=== PATIENT | male | born 1960 | race Caucasian/White ===

== ENCOUNTER 2018-04-22 21:06 | Inpatient (IN) ==
--- NOTE | 2018-04-22 21:11 | Emergency Department Note ---
Disposition Clinical Impression: Chest pain, rule out acute myocardial infarction Disposition: Admitted As Inpatient Condition: Fair Chest Pain HPI - General Chief Complaint: ED Chest Pain Stated Complaint: chest pain Time Seen by Provider: 04/22/18 21:09 Vital Signs Reviewed: Yes Nursing Notes Reviewed: Yes - History of Present Illness HPI Narrative: 57-year-old male presents emergency Department with sudden abrupt onset of retrosternal chest pain that started at 18:30 this evening. Patient has extensive history of coronary artery disease. He has 5 stents placed. Patient reports that he had episode of diaphoresis and nausea vomiting with it. Patient denies any radiation anywhere. Severity scale (1-10): 5 - Related Data Home Medications Medication Instructions Recorded Confirmed Atorvastatin [Lipitor] 40 mg PO HS 04/22/18 04/22/18 Clopidogrel [Plavix] 75 mg PO DAILY 04/22/18 04/22/18 Hydrochlorothiazide [Microzide] 12.5 mg PO DAILY 04/22/18 04/22/18 Isosorbide MONOnitrate [Isosorbide 120 mg PO DAILY 04/22/18 04/22/18 Mononitrate ER] Metoprolol [Lopressor] 25 mg PO BID 04/22/18 04/22/18 dilTIAZem HCl [Diltiazem 24Hr Cd] 120 mg PO DAILY 04/22/18 04/22/18 Allergies Allergy/AdvReac Type Severity Reaction Status Date / Time No Known Allergies Allergy Verified 04/22/18 21:47 All systems ED: reviewed and negative except as stated. Review of Systems: As Per HPI Constitutional: Denies: fever Cardiovascular: Reports: chest pain. Denies: palpitations Respiratory: Denies: cough, dyspnea Gastrointestinal: Reports: nausea, vomiting. Denies: abdominal pain Genitourinary: Denies: urgency, dysuria, frequency Musculoskeletal: Denies: back pain Integumentary: Denies: rash Neurological: Denies: weakness Physical Exam - General Limitations: no limitations General appearance: other (Patient appears uncomfortable) - Head Head exam: atraumatic - Eye Eye exam: Present: EOMI. Absent: scleral icterus - ENT ENT exam: normal oropharynx - Neck Neck exam: Present: trachea midline - Chest Chest inspection: Present: symmetric chest wall rise - Respiratory Respiratory exam: Present: normal lung sounds bilaterally. Absent: respiratory distress, accessory muscle use - Cardiovascular Cardiovascular exam: Present: regular rate, normal rhythm - Abdominal Exam Abdominal exam: Present: soft, Non-Tender. Absent: distention, guarding, rebound - Extremities Exam Extremities exam: Present: normal capillary refill - Back Exam Back exam: Present: full ROM - Neurological Exam Neurological exam: Present: alert, oriented X3 - Psychiatric Psychiatric exam: Present: anxious - Skin Skin exam: Present: warm, dry, intact, normal color. Absent: rash Course Vital Signs Temperature 97.8 F 04/22/18 21:06 Pulse Rate 88 04/22/18 21:06 Respiratory Rate 20 04/22/18 21:06 Blood Pressure 149/100 04/22/18 21:06 O2 Sat by Pulse Oximetry 98 04/22/18 21:06 Temperature 97.8 F 04/22/18 21:13 Pulse Rate 78 04/22/18 22:38 Respiratory Rate 20 04/22/18 22:38 Blood Pressure 129/84 04/22/18 22:38 O2 Sat by Pulse Oximetry 95 04/22/18 22:38 Oxygen Delivery Oxygen Delivery Room Air Chest Pain - [facility] Narrative Medical decision making narrative: 57-year-old male presents emergency department with concern for chest pain. Patient has a highly suspicious history of present illness. Heart score 5. Patient initially had episodes of nausea and vomiting with his chest pain. Initial EKG did not show any ischemic ST changes. 15 minutes after the first EKG, patient started having another episode of nausea vomiting with chest pain. Repeat EKG did not reveal any ischemic ST changes. Troponin was negative. A leukocytosis. Hemoglobin was normal. Patient's chest pain and nausea vomiting resolves after administration of nitroglycerin sublingually as well as Zofran for his nausea and vomiting. Patient also received aspirin here. Chest x-ray as read by me does not reveal any cardiopulmonary abnormality. Chest x-ray pending at time of admission. Spoke with the hospitalist agreed to accept patient for admission. After admission, patient was reporting mild increase of his chest pain to 4 out of 10. We administered nitroglycerin in form of paste. We are also running a liter of normal saline at this time as blood pressures are now normalized. Do not suspect aortic dissection at this time. Radial Pulses were equal bilaterally and there was no widening of the mediastinum on chest x-ray along with normal blood pressure. Patient hemodynamically stable at this time. Family and patient agree with plan for admission. Vital Signs Temperature 97.8 F 04/22/18 21:06 Pulse Rate 88 04/22/18 21:06 Respiratory Rate 20 04/22/18 21:06 Blood Pressure 149/100 04/22/18 21:06 O2 Sat by Pulse Oximetry 98 04/22/18 21:06 Temperature 97.8 F 04/22/18 21:13 Pulse Rate 78 04/22/18 22:38 Respiratory Rate 20 04/22/18 22:38 Blood Pressure 129/84 04/22/18 22:38 O2 Sat by Pulse Oximetry 95 04/22/18 22:38 Oxygen Delivery Oxygen Delivery Room Air - Lab Data Result diagrams: 04/22/18 21:20 04/22/18 21:20 Lab Results 04/22/18 04/22/18 04/22/18 Range/Units 21:10 21:20 21:20 WBC 9.6 (4.3-11.1) K/mcL RBC 5.17 (4.19-5.50) M/mcL Hgb 15.9 (12.9-16.9) g/dL Hct 45.3 (37.5-50.1) % MCV 87.6 (83.0-100.0) fL MCH 30.8 (28.0-33.3) pg MCHC 35.1 (31.6-35.5) g/dL RDW 13.6 (11.5-14.5) % Plt Count 200 (140-400) K/mcL MPV 9.9 (9.4-12.4) fL Immature Gran % 0.3 (0-4) % Seg Neutrophils % 84.0 % Lymphocytes % 10.4 % Monocytes % 4.2 % Eosinophils % 0.9 % Basophils % 0.2 % Neutrophils # 8.1 (1.6-8.9) K/mcL Lymphocytes # 1.0 (0.6-4.6) K/mcL Monocytes # 0.4 (0.0-1.3) K/mcL Eosinophils # 0.1 (0.0-0.6) K/mcL Basophils # 0.0 (0.0-0.2) K/mcL PT 11.7 (9.4-12.1) Seconds INR 1.0 APTT 31.7 (26.0-36.0) Seconds Sodium 141 (136-145) mEq/L Potassium 3.7 (3.5-5.1) mEq/L Chloride 107 (98-107) mEq/L Carbon Dioxide 25 (23-29) mEq/L BUN 22 H (6-20) mg/dL Creatinine 1.27 (0.70-1.30) mg/dL Est GFR ( Amer) > 60 (> 60) Est GFR (Non-Af Amer) 59 L (> 60) BUN/Creatinine Ratio 17 (6-26) Glucose 126 H (70-105) mg/dL Calculated Osmolality 297 (280-300) Calcium 9.6 (8.6-10.3) mg/dL Troponin I < 0.03 (< 0.04) ng/mL - EKG Data EKG attestation: Yes I reviewed and interpreted this EKG. EKG results narrative: 21:15 Ventricular rate 70 bpm, CA 172 ms, QRS duration 120 ms, QT 372 ms, QTC 405 ms, left axis deviation. No ischemic ST changes on this EKG. EKG #2 21:32 Sinus rhythm with ventricular 70 bpm. No new ischemic ST changes when in comparison with a previous one obtained Heart Score - Score History: Highly Suspicious EKG: Normal Age: 45-65 Risk Factors: Equal/Greater than 3 risk factor or history of atherosclerotic disease Troponin: Less than normal limit HEART Score Total: 5
[2018-04-22] MEDS ORDERED: Aspirin 81 MG TAB.CHEW PO ONE (21:21)
[2018-04-22] MEDS ORDERED: Ondansetron 4 MG/2 ML VIAL IVP ONE (21:29)
[2018-04-22 21:37] LABS: Basophils % 0.2 %; Eosinophils # 0.1 K/mcL (0.0-0.6); Eosinophils % 0.9 %; Hematocrit 45.3 % (37.5-50.1); Hemoglobin 15.9 g/dL (12.9-16.9); Immature Granulocytes % 0.3 % (0-4); Lymphocytes % 10.4 %; Mean Corpuscular HGB Conc 35.1 g/dL (31.6-35.5); Mean Corpuscular Hemoglobin 30.8 pg (28.0-33.3); Mean Corpuscular Volume 87.6 fL (83.0-100.0); Mean Platelet Volume 9.9 fL (9.4-12.4); Monocytes # 0.4 K/mcL (0.0-1.3); Monocytes % 4.2 %; Neutrophils # 8.1 K/mcL (1.6-8.9); Platelet Count 200 K/mcL (140-400); Red Blood Count 5.17 M/mcL (4.19-5.50); Red Cell Distribution Width 13.6 % (11.5-14.5)
[2018-04-22] MEDS: Nitroglycerin 0.4 MG TAB.SUBL SL PRN ×4 (21:39→23:50)
[2018-04-22] MEDS: 0.9 % Sodium Chloride 1,000 ML IVC ONE (21:42)
[2018-04-22 21:43] LABS: Prothrombin Time 11.7 Seconds (9.4-12.1)
[2018-04-22 21:45] LABS: Activated Partial Thrombo Time 31.7 Seconds (26.0-36.0)
[2018-04-22 21:59] LABS: BUN/Creatinine Ratio 17 (6-26); Blood Urea Nitrogen 22 mg/dL (6-20); Calcium 9.6 mg/dL (8.6-10.3); Carbon Dioxide 25 mEq/L (23-29); Chloride 107 mEq/L (98-107); Glucose 126 mg/dL (70-105); Osmolality,Calculated 297 (280-300); Potassium 3.7 mEq/L (3.5-5.1); Sodium 141 mEq/L (136-145); Troponin I < 0.03 ng/mL (< 0.04); eGFR For Non-African Americans 59 (> 60)
--- NOTE | 2018-04-22 22:57 | Emergency Department Note ---
Disposition Clinical Impression: Chest pain, rule out acute myocardial infarction Disposition: Admitted As Inpatient Condition: Fair Referrals: Eva Hannon MD [Primary Care Provider] - Time of Disposition: 22:30 Chest Pain HPI - General Chief Complaint: ED Chest Pain Stated Complaint: chest pain Time Seen by Provider: 04/22/18 21:09 Source: family Mode of arrival: ambulatory Limitations: no limitations Vital Signs Reviewed: Yes Nursing Notes Reviewed: Yes - History of Present Illness Severity scale (1-10): 0 - Related Data Home Medications Medication Instructions Recorded Confirmed Atorvastatin [Lipitor] 40 mg PO HS 04/22/18 04/22/18 Clopidogrel [Plavix] 75 mg PO DAILY 04/22/18 04/22/18 Hydrochlorothiazide [Microzide] 12.5 mg PO DAILY 04/22/18 04/22/18 Isosorbide MONOnitrate [Isosorbide 120 mg PO DAILY 04/22/18 04/22/18 Mononitrate ER] Metoprolol [Lopressor] 25 mg PO BID 04/22/18 04/22/18 dilTIAZem HCl [Diltiazem 24Hr Cd] 120 mg PO DAILY 04/22/18 04/22/18 Allergies Allergy/AdvReac Type Severity Reaction Status Date / Time No Known Allergies Allergy Verified 04/22/18 21:47 Chest Pain PMH - Past Medical History Medical history: Reports: hyperlipidemia, hypertension, myocardial infarction Psychiatric history: Reports: no psych history - Social History Smoking Status: Never smoker Alcohol use: Reports: none Drug use: Reports: none Physical Exam - General Limitations: no limitations General appearance: alert, in no apparent distress Course Vital Signs Temperature 97.8 F 04/22/18 21:06 Pulse Rate 88 04/22/18 21:06 Respiratory Rate 04/22/18 21:06 Blood Pressure 149/100 04/22/18 21:06 O2 Sat by Pulse Oximetry 98 04/22/18 21:06 Temperature 97.8 F 04/22/18 21:13 Pulse Rate 78 04/22/18 22:38 Respiratory Rate 20 04/22/18 22:38 Blood Pressure 129/84 04/22/18 22:38 O2 Sat by Pulse Oximetry 95 04/22/18 22:38 Oxygen Delivery Oxygen Delivery Room Air Chest Pain - Lab Data Result diagrams: 04/22/18 21:20 04/22/18 21:20 Lab Results 04/22/18 04/22/18 04/22/18 Range/Units 21:10 21:20 21:20 WBC 9.6 (4.3-11.1) K/mcL RBC 5.17 (4.19-5.50) M/mcL Hgb 15.9 (12.9-16.9) g/dL Hct 45.3 (37.5-50.1) % MCV 87.6 (83.0-100.0) fL MCH 30.8 (28.0-33.3) pg MCHC 35.1 (31.6-35.5) g/dL RDW 13.6 (11.5-14.5) % Plt Count 200 (140-400) K/mcL MPV 9.9 (9.4-12.4) fL Immature Gran % 0.3 (0-4) % Seg Neutrophils % 84.0 % Lymphocytes % 10.4 % Monocytes % 4.2 % Eosinophils % 0.9 % Basophils % 0.2 % Neutrophils # 8.1 (1.6-8.9) K/mcL Lymphocytes # 1.0 (0.6-4.6) K/mcL Monocytes # 0.4 (0.0-1.3) K/mcL Eosinophils # 0.1 (0.0-0.6) K/mcL Basophils # 0.0 (0.0-0.2) K/mcL PT 11.7 (9.4-12.1) Seconds INR 1.0 APTT 31.7 (26.0-36.0) Seconds Sodium 141 (136-145) mEq/L Potassium 3.7 (3.5-5.1) mEq/L Chloride 107 (98-107) mEq/L Carbon Dioxide 25 (23-29) mEq/L BUN 22 H (6-20) mg/dL Creatinine 1.27 (0.70-1.30) mg/dL Est GFR ( Amer) > 60 (> 60) Est GFR (Non-Af Amer) 59 L (> 60) BUN/Creatinine Ratio 17 (6-26) Glucose 126 H (70-105) mg/dL Calculated Osmolality 297 (280-300) Calcium 9.6 (8.6-10.3) mg/dL Troponin I < 0.03 (< 0.04) ng/mL Attestation Statement - Attestation Attestation: I, Lux Castro, examined this patient and my medical decision-making was reviewed with the REGIONAL TELECOMMUNICATIONS SPECIALIST/PA/Advanced Practice Nurse/Resident Physician. I agree with the documented findings, disposition and treatment plan as described except to the extent set forth below. 57-year-old male presents emergency Department with concerns of acute onset chest pain. Patient states symptoms started within the past few hours prior to arrival. Patient describes the pain as in the center of his chest. He has an extensive cardiac history with 5 stents [place]. Patient takes Plavix for anticoagulation. Denies missing any of his doses. Initial EKG did not show evidence of STEMI. While he was here in the emergency department he had recurrence of his chest pain with associated diaphoresis and nausea and vomiting. Repeat EKG also did not show evidence of STEMI. Initial troponin was negative. Patient will be admitted to the hospitalist for further care and evaluation to rule out ACS.
[2018-04-22] MEDS ORDERED: Nitroglycerin 1 INCH/GM PACKET TP ONE (23:01)
[2018-04-23] MEDS ORDERED: Ondansetron 4 MG/2 ML VIAL IVP PRN (00:19)
[2018-04-23] MEDS ORDERED: *HR* Promethazine 25 MG/ML VIAL IVP PRN (01:47)
[2018-04-23] MEDS ORDERED: GI Cocktail 40 ML EACH PO ONE (01:52)
[2018-04-23] MEDS ORDERED: 0.9 % Sodium Chloride 1,000 ML IVC ONE (01:54)
[2018-04-23] MEDS: Nitroglycerin 25 MG/250 ML INFUS..BTL IVC SCH (02:17)
[2018-04-23] MEDS ORDERED: Naloxone 0.4 MG/ML INJ IVP PRN (02:54)
[2018-04-23 04:10] LABS: Hematocrit 39.8 % (37.5-50.1); Mean Corpuscular HGB Conc 34.7 g/dL (31.6-35.5); Mean Corpuscular Hemoglobin 30.7 pg (28.0-33.3); Mean Corpuscular Volume 88.4 fL (83.0-100.0); Mean Platelet Volume 10.4 fL (9.4-12.4); Platelet Count 173 K/mcL (140-400); Red Cell Distribution Width 13.8 % (11.5-14.5)
[2018-04-23] MEDS ORDERED: 0.9 % Sodium Chloride 1,000 ML ONE (04:26)
[2018-04-23 04:29] LABS: BUN/Creatinine Ratio 16 (6-26); Blood Urea Nitrogen 18 mg/dL (6-20); Calcium 8.5 mg/dL (8.6-10.3); Carbon Dioxide 23 mEq/L (23-29); Chloride 111 mEq/L (98-107); Glucose 154 mg/dL (70-105); Osmolality,Calculated 299 (280-300); Potassium 3.2 mEq/L (3.5-5.1); Sodium 142 mEq/L (136-145); eGFR For Non-African Americans > 60 (> 60)
[2018-04-23 04:32] LABS: Hemoglobin 13.8 g/dL (12.9-16.9)
[2018-04-23] MEDS: Pantoprazole 40 MG VIAL IVP SCH (06:19)
--- NOTE | 2018-04-23 07:43 | Internal Med History&Physical ---
Date of Encounter: 04/23/18 Time of Encounter: 01:30 Internal Medicine - H&P: HPI Chief complaint: Chest pain Admitted From: Home Plans for Post Hospital Care: Home History of present illness: Mr. Turcios is a 57 year old male Patient states that he had lower abdominal pain that started in the evenings 2 days prior to admission. After which he went to bed. In the morning pain had improved but around 6:30 in the evening of admission pain started but was focused substernal without radiation. [place] like burning sensation. He has had associated nausea and dry heaves. He has a history of 5 stents, with first stents placed about 7 years ago. This particular pain is different than his chest pain that he experienced years ago. He came to emergency room for further evaluation. In the emergency room troponins were negative, EKG showed normal sinus rhythm with no ST changes. He was admitted for further chest pain rule out. Upon my arrival to the patient's room he was still experiencing chest pain. Slight improvement with nitroglycerin but patient started dry heaving and eventually vomited in the room. I ordered Protonix and GI cocktail after which patient said that his pain was improving. I also ordered a nitroglycerin drip to be initiated as well. After these interventions patient said that his chest pain was controlled. Past Med Surg Social Fam HX - Past Medical History Medical history: hyperlipidemia, hypertension, myocardial infarction Additional medical history: 5 stents, appy Psychiatric history: no psych history - Past Surgical History Surgical History: appendectomy Additional surgical history: heart stents - Social History Smoking Status: Never smoker Smokeless Tobacco Status: No Alcohol use: none Drug use: none - Family History Mother Living Status: Still Living Hx Family Cardiac Disorders: Yes Hx Family Cancer: Yes (colon) Hx Family Endocrine Disorder: Yes (DM) Father Living Status: Still Living Hx Family Cardiac Disorders: Yes (SD) Internal Medicine - H&P: Meds Atorvastatin [Lipitor] 40 mg PO HS 04/22/18 [History] Clopidogrel [Plavix] 75 mg PO DAILY 04/22/18 [History] Hydrochlorothiazide [Microzide] 12.5 mg PO DAILY 04/22/18 [History] Isosorbide MONOnitrate [Isosorbide Mononitrate ER] 120 mg PO DAILY 04/22/18 [ History] Metoprolol [Lopressor] 25 mg PO BID 04/22/18 [History] dilTIAZem HCl [Diltiazem 24Hr Cd] 120 mg PO DAILY 04/22/18 [History] 3 Allergy/AdvReac Type Severity Reaction Status Date / Time No Known Allergies Allergy Verified 04/22/18 21:47 All Systems PM: A 10-system review of systems was performed and is negative for pertinent findings except as documented above in the HPI. - Constitutional Vitals: Temp Pulse Resp BP Pulse Ox 97.8 F 72 17 130/88 94 04/23/18 03:57 04/23/18 06:05 04/23/18 06:05 04/23/18 06:05 04/23/18 06:05 General appearance: Present: cooperative, mild distress, A&O X 3, pleasant, answers questions appropriately - Head Head exam: Present: normal inspection - Eye Eye exam: Present: EOMI, normal appearance - Respiratory Respiratory exam: Present: CTAB. Absent: chest wall tenderness, decreased breath sounds, wheezes - Cardiovascular Cardiovascular exam: Present: RRR. Absent: diastolic murmur, systolic murmur - GI/Abdominal GI/Abdominal exam: Present: normal bowel sounds, soft. Absent: tenderness - Extremities Exam Extremities exam: Present: warm, radial pulses palpable and symmetrical. Absent : calf tenderness, pedal edema, tenderness - Neurological Exam Neurological exam: Present: no focal deficits, strengths equal and symetr throughout. Absent: motor sensory deficit, facial droop, speech deficit - Skin Skin exam: Present: dry, normal color, warm Internal Med - H&P Results - Labs CBC & Chem 7: 04/23/18 03:53 04/23/18 03:53 Labs: Short CBC 04/23/18 Range/Units 03:53 WBC 8.5 (4.3-11.1) K/mcL Hgb 13.8 D (12.9-16.9) g/dL Hct 39.8 (37.5-50.1) % Plt Count 173 (140-400) K/mcL BMP 04/23/18 03:53 Sodium 142 Potassium 3.2 L Chloride 111 H Carbon Dioxide 23 BUN 18 Creatinine 1.10 Glucose 154 H Calcium 8.5 L Cardiac Enzymes 04/23/18 Range/Units 03:53 Troponin I < 0.03 (< 0.04) ng/mL - Assessment and plan (1) Chest pain, rule out acute myocardial infarction Current Visit: Yes Status: Acute Assessment and plan: Patient started on nitro drip, pain improved and patient rested through the night. Troponins remain undetectable Continue to trend troponins breaker hand Continue nitroglycerin drip Consider stress test or echocardiogram in the morning O2 at 2L NC Consider cardiology consult (2) Nausea & vomiting Current Visit: Yes Status: Acute Assessment and plan: Improved after GI cocktail and Protonix. Patient also given Zofran and Phenergan. Continue to monitor Qualifiers: Qualified Code(s): R11.2 - Nausea with vomiting, unspecified (3) Hypertension Current Visit: Yes Status: Acute Assessment and plan: elevated in the emergency room, patient takes hydrochlorothiazide at home as well as metoprolol and diltiazem. Continue to monitor Qualifiers: Qualified Code(s): I10 - Essential (primary) hypertension (4) Hyperlipidemia Current Visit: Yes Status: Acute Assessment and plan: On atorvastatin Continue home meds Qualifiers: Qualified Code(s): E78.5 - Hyperlipidemia, unspecified (5) History of heart artery stent Current Visit: Yes Status: Acute Assessment and plan: On Plavix Continue home meds - Time Spent With Patient Total time spent is greater than 50% in coordination of care (as documented) at patient's floor/unit and/or counseling patient: Greater than 35 minutes
[2018-04-23] MEDS: Diltiazem CD (24hr) 120 MG CAPSULE PO SCH (09:37)
[2018-04-23] MEDS: hydroCHLOROthiazide 25 MG TABLET PO SCH (09:37)
[2018-04-23] MEDS: Isosorbide MONOnitrate (24 HR) 60 MG TAB.ER.24H PO SCH (09:38)
--- NOTE | 2018-04-23 10:18 | Cardiology Consult Note ---
Date of Encounter: 04/23/18 Time of Encounter: 10:16 Assessment and Plan (1) Unstable angina Current Visit: Yes Status: Acute Symptoms concerning for unstable angina. Chest discomfort, n/v, dyspnea and fatigue at rest, improvement on nitro gtt. Troponins negative x 2. EKG no acute changes. Most recent [facility] 11/2013 with NICA pLAD. Negative stress test in 2016. Given his CAD hx and symptoms of unstable angina, recommend [facility] Wednesday. R/B/A discussed. Pt agrees to proceed. Will continue nitro gtt. Check TTE to evaluate structure and function. Continue to follow and plan for [facility] Wednesday. (2) CAD (coronary artery disease) Current Visit: Yes Status: Acute Hx CAD and multiple PCI, most recent 2013. ASA, Statin, Plavix, BB, nitrates. Qualifiers: Coronary Disease-Associated Artery/Lesion type: [place] artery [place] vs. transplanted heart: [place] sioux heart Associated angina: with unstable angina Qualified Code(s): I25.110 - Atherosclerotic heart disease of [place] coronary artery with unstable angina pectoris Discussion w patient/family: The assessment and plan as outlined above was discussed with the patient and/or family members who expressed understanding and agreement. All questions were answered. Thank you for involving us in the care of your patient. Please call with any questions. I will discuss all the above with Dr. Marlow and make changes as necessary. History of Present Illness Consult date: 04/23/18 Consult reason: chest pain Chief complaint: chest pain History of present illness: Mr. Turcios is a 57 year old male with PMH of CAD s/p multiple PCI, most recent s/p NICA pLAD 11/16/2013, HTN, HPL, obesity. He began experiencing abdominal tightness/pain 2 days ago that was constant. Yesterday after work he came home and pain radiated into his chest associated with dyspnea and fatigue, nausea and vomiting. Midsternal chest pressure. He presented to ED for further evaluation. After GI cocktail and nitro gtt were started, pain subsided and he is currently CP free. Troponins negative x 2. Cardiology consulted for further recs. Past Med Surg Social Fam HX - Past Medical History Medical history: coronary artery disease, hyperlipidemia, hypertension, myocardial infarction Additional medical history: 5 stents, appy Psychiatric history: no psych history - Past Surgical History Surgical History: angioplasty/stent, appendectomy Additional surgical history: heart stents - Social History Smoking Status: Never smoker Smokeless Tobacco Status: No Alcohol use: none Drug use: none - Family History Mother Living Status: Still Living Hx Family Cardiac Disorders: Yes Hx Family Cancer: Yes (colon) Hx Family Endocrine Disorder: Yes (DM) Father Living Status: Still Living Hx Family Cardiac Disorders: Yes (DE) Medications and Allergies Atorvastatin [Lipitor] 40 mg PO HS 04/22/18 [History] Clopidogrel [Plavix] 75 mg PO DAILY 04/22/18 [History] Hydrochlorothiazide [Microzide] 12.5 mg PO DAILY 04/22/18 [History] Isosorbide MONOnitrate [Isosorbide Mononitrate ER] 120 mg PO DAILY 04/22/18 [ History] Metoprolol [Lopressor] 25 mg PO BID 04/22/18 [History] dilTIAZem HCl [Diltiazem 24Hr Cd] 120 mg PO DAILY 04/22/18 [History] 3 Allergy/AdvReac Type Severity Reaction Status Date / Time No Known Allergies Allergy Verified 04/22/18 21:47 All Systems Review: The remainder of the systems were reviewed and are negative - Cardiovascular Cardiovascular: as per HPI, chest pain at rest, chest pain with exertion, dyspnea at rest, dyspnea on exertion - Respiratory Respiratory: dyspnea - Gastrointestinal Gastrointestinal: nausea Physical Examination Vital Signs, Last 4 Hours Temp Pulse Resp BP Pulse Ox 04/23/18 09:15 148/87 04/23/18 07:44 98.0 F 71 17 130/88 95 Vital Signs Temp Pulse Resp BP Pulse Ox 04/23/18 09:15 148/87 04/23/18 07:44 98.0 F 71 17 130/88 95 04/23/18 06:05 72 17 130/88 94 04/23/18 05:50 69 16 120/85 92 04/23/18 05:35 70 132/87 94 04/23/18 05:20 73 16 127/86 92 04/23/18 05:05 70 16 128/78 94 04/23/18 04:20 71 16 135/92 94 04/23/18 04:05 69 16 128/85 94 04/23/18 03:57 97.8 F 69 16 142/90 92 04/23/18 03:50 72 16 132/88 92 04/23/18 03:35 80 16 141/94 92 04/23/18 03:20 82 155/90 92 04/23/18 03:14 98 189/110 96 04/23/18 02:55 70 20 136/86 94 04/23/18 02:31 97.6 F 69 18 152/92 95 04/23/18 02:26 95 04/23/18 02:24 68 17 159/94 95 04/23/18 00:25 168/90 04/22/18 23:22 98.1 F 68 17 168/102 95 04/22/18 22:38 78 20 129/84 95 04/22/18 21:52 87 18 146/107 94 04/22/18 21:40 82 22 160/103 93 04/22/18 21:13 97.8 F 88 20 149/100 98 04/22/18 21:06 97.8 F 88 20 149/100 98 Intake and Output 04/22/18 04/23/18 04/23/18 23:59 07:59 15:59 Intake Total 7 / 7 Output Total 800 / 800 Balance -793 / -793 Intake: IV Fluids / 7 Nitroglycerin Premix 25 MG/250 7 / 7 ML 25 mg In 250 ml @ 5 MCG/MIN 3 mls/hr IVC .Q24H [facility] Rx#: [id number] Output: Urine 800 / 800 Other: Meal NPO Weight 108.7 kg 109 kg Patient Weight 04/23/18 23:59 Weight 109 kg General: Conversant, No Apparent Distress HEENT: Atraumatic, Normocephaly, Mucus Membranes Moist Neck: No JVD, Normal carotid pulses Cardiac: Reg Rate and Rhythm, Normal S1 and S2, No Murmur Lungs: Normal Breath Sounds, No Wheeze, Rales, Rhonchi Neuro: Alert and responsive, No focal deficits noted Abdomen: Soft, Non-Tender Skin: No rashes noted on visualized skin Musculoskeletal: No Chest Wall Tenderness Extremities: No Clubbing, No Cyanosis, No Edema, Normal Pulses Results 04/23/18 03:53 04/23/18 03:53 Lab Results 04/23/18 04/23/18 04/23/18 03:53 03:53 03:53 WBC 8.5 Hgb 13.8 D Hct 39.8 Plt Count 173 Sodium 142 Potassium 3.2 L Chloride 111 H Carbon Dioxide 23 BUN 18 Creatinine 1.10 Glucose 154 H Calcium 8.5 L Troponin I < 0.03 Short CBC 04/23/18 04/22/18 Range/Units 03:53 21:20 WBC 8.5 9.6 (4.3-11.1) K/mcL Hgb 13.8 D 15.9 (12.9-16.9) g/dL Hct 39.8 45.3 (37.5-50.1) % Plt Count 173 200 (140-400) K/mcL Neutrophils # 8.1 (1.6-8.9) K/mcL BMP 04/23/18 04/22/18 Range/Units 03:53 21:20 Sodium 142 141 (136-145) mEq/L Potassium 3.2 L 3.7 (3.5-5.1) mEq/L Chloride 111 H 107 (98-107) mEq/L Carbon Dioxide 23 25 (23-29) mEq/L BUN 18 22 H (6-20) mg/dL Creatinine 1.10 1.27 (0.70-1.30) mg/dL Glucose 154 H 126 H (70-105) mg/dL Calcium 8.5 L 9.6 (8.6-10.3) mg/dL Cardiac Enzymes 04/23/18 04/22/18 Range/Units 03:53 21:20 Troponin I < 0.03 < 0.03 (< 0.04) ng/mL Impressions Chest X-Ray 04/22/18 21:10 IMPRESSION: No acute cardiopulmonary abnormality. D/ / Magen Sorto MD / Magen Sorto MD Interpreting Provider: Magen Sorto MD Active Medications Acetaminophen (Tylenol) 325 mg PO Q6HR PRN PRN Reason: Pain Stop: 10/23/18 00:20 Atorvastatin Calcium (Lipitor) 40 mg PO HS REINA Stop: 10/23/18 21:01 Clopidogrel Bisulfate (Plavix) 75 mg PO DAILY REINA Stop: 10/23/18 09:01 Last Admin: 04/23/18 09:38 Dose: Not Given Diltiazem HCl (Cardizem Cd) 120 mg PO DAILY REINA Stop: 10/23/18 09:01 Last Admin: 04/23/18 09:37 Dose: Not Given Hydrochlorothiazide (Hydrochlorothiazide) 12.5 mg PO DAILY REINA Stop: 10/23/18 09:01 Last Admin: 04/23/18 09:37 Dose: Not Given Nitroglycerin (Nitroglycerin Premix 25 Mg/250 Ml) 25 mg in 250 mls @ 3 mls/hr IVC .Q24H REINA; 5 MCG/MIN PRN Reason: Protocol Stop: 10/23/18 02:01 Last Titration: 04/23/18 03:13 Dose: 10 mcg/min, 6 mls/hr Isosorbide Mononitrate (Imdur) 120 mg PO DAILY REINA Stop: 10/23/18 09:01 Last Admin: 04/23/18 09:38 Dose: Not Given Metoprolol Tartrate (Lopressor) 25 mg PO BID REINA Stop: 10/23/18 09:01 Last Admin: 04/23/18 09:38 Dose: Not Given Naloxone HCl (Narcan) 0.4 mg IVP Q2MIN PRN PRN Reason: SEE COMMENTS Stop: 10/23/18 02:55 Nitroglycerin (Nitroglycerin) 0.4 mg SL Q5MIN PRN PRN Reason: Chest Pain Stop: 10/22/18 21:22 Last Admin: 04/22/18 23:50 Dose: 0.4 mg Ondansetron HCl (Zofran) 4 mg IVP Q6HR PRN; Protocol PRN Reason: Nausea Stop: 10/23/18 00:20 Last Admin: 04/23/18 00:40 Dose: 4 mg Pantoprazole Sodium (Protonix) 40 mg IVP 0630 [facility] Stop: 10/23/18 06:31 Last Admin: 04/23/18 06:19 Dose: 40 mg Promethazine HCl (Phenergan) 12.5 mg IVP Q6HR PRN PRN Reason: Nausea And Vomiting option 2 Stop: 10/23/18 01:48 Last Admin: 04/23/18 01:54 Dose: 12.5 mg - Imaging and Cardiology Stress Test: report reviewed - EKG Interpretation EKG results cardiology: personally reviewed (SR), other (12 hr tele AVG HR 73, SR, no significant pauses or arrhythmias.) Consult Discharge Plan - Plan Referrals: Eva Hannon MD [Partnered Physician] -
[2018-04-23] MEDS: Aspirin 81 MG TAB.CHEW PO SCH (12:35)
[2018-04-24] MEDS: Pantoprazole 40 MG VIAL IVP SCH (05:36)
[2018-04-24] MEDS: Acetaminophen 325 MG TABLET PO PRN (05:40)
[2018-04-24 06:39] LABS: BUN/Creatinine Ratio 18 (6-26); Blood Urea Nitrogen 17 mg/dL (6-20); Calcium 8.3 mg/dL (8.6-10.3); Carbon Dioxide 25 mEq/L (23-29); Chloride 109 mEq/L (98-107); Glucose 116 mg/dL (70-105); Osmolality,Calculated 295 (280-300); Potassium 4.1 mEq/L (3.5-5.1); Sodium 141 mEq/L (136-145); eGFR For Non-African Americans > 60 (> 60)
--- NOTE | 2018-04-24 09:01 | Cardiology Progress Note ---
Date of Encounter: 04/24/18 Time of Encounter: 08:59 Assessment and Plan (1) Unstable angina Current Visit: Yes Status: Acute Symptoms concerning for unstable angina. Chest discomfort, n/v, dyspnea and fatigue at rest, improvement on nitro gtt. Troponins negative x 3. EKG no acute changes. Most recent [facility] 11/2013 with NICA pLAD. Negative stress test in 2015. Given his CAD hx and symptoms of unstable angina, recommend [facility] Wednesday. R/B/A discussed. Pt agrees to proceed. Will continue nitro gtt. TTE EF preserved, mild AR. Continue to follow and plan for [facility] tomorrow. (2) CAD (coronary artery disease) Current Visit: Yes Status: Acute Hx CAD and multiple PCI, most recent 2013. ASA, Statin, Plavix, BB, nitrates. Qualifiers: Coronary Disease-Associated Artery/Lesion type: [place] artery [place] vs. transplanted heart: [place] heart Associated angina: with unstable angina Qualified Code(s): I25.110 - Atherosclerotic heart disease of [place] coronary artery with unstable angina pectoris Discussion w patient/family: The assessment and plan as outlined above was discussed with the patient and/or family members who expressed understanding and agreement. All questions were answered. Thank you for involving us in the care of your patient. Please call with any questions. I will discuss all the above with Dr. Marlow and make changes as necessary. Subjective Principal diagnosis: Unstable angina Interval history: Pt chest pain free on nitro gtt. No acute complaints. TTE EF preserved, mild AR. Objective Vital Signs, Last 4 Hours Temp Pulse Resp BP Pulse Ox 04/24/18 07:00 97.9 F 53 15 123/84 97 Vital Signs Temp Pulse Resp BP Pulse Ox 04/24/18 07:00 97.9 F 53 15 123/84 97 04/24/18 02:52 98.2 F 57 16 121/74 95 04/23/18 22:38 98 F 60 16 136/81 98 04/23/18 18:32 98.3 F 67 18 172/84 98 04/23/18 16:26 98.2 F 62 17 119/72 95 04/23/18 12:33 98.3 F 58 18 124/80 96 04/23/18 09:15 148/87 Intake and Output 04/23/18 04/24/18 04/24/18 23:59 07:59 15:59 Intake Total 2039 0 / 0 Output Total 775 / 775 Balance 1265 / 1265 0 / 0 Intake: Oral 2039 0 / 0 Output: Urine 775 / 775 Other: Meal Dinner Percent of Meal Consumed 100% Weight 110.2 kg Patient Weight 04/24/18 23:59 Weight 110.2 kg General: Conversant, No Apparent Distress HEENT: Atraumatic, Normocephaly, Mucus Membranes Moist Neck: No JVD, Normal carotid pulses Cardiac: Reg Rate and Rhythm, Normal S1 and S2, No Murmur Lungs: Normal Breath Sounds, No Wheeze, Rales, Rhonchi Neuro: Alert and responsive, No focal deficits noted Abdomen: Soft, Non-Tender Skin: No rashes noted on visualized skin Musculoskeletal: No Chest Wall Tenderness Extremities: No Clubbing, No Cyanosis, No Edema, Normal Pulses Results 04/23/18 03:53 04/24/18 05:44 Lab Results 04/23/18 04/24/18 09:07 05:44 Sodium 141 Potassium 4.1 Chloride 109 H Carbon Dioxide 25 BUN 17 Creatinine 0.96 Glucose 116 H Calcium 8.3 L Troponin I < 0.03 BMP 04/24/18 Range/Units 05:44 Sodium 141 (136-145) mEq/L Potassium 4.1 (3.5-5.1) mEq/L Chloride 109 H (98-107) mEq/L Carbon Dioxide 25 (23-29) mEq/L BUN 17 (6-20) mg/dL Creatinine 0.96 (0.70-1.30) mg/dL Glucose 116 H (70-105) mg/dL Calcium 8.3 L (8.6-10.3) mg/dL Cardiac Enzymes 04/23/18 Range/Units 09:07 Troponin I < 0.03 (< 0.04) ng/mL Impressions Echocardiogram 04/23/18 10:25 Impressions: LVEF 60%. Normal LV chamber size, wall thickness and function. Indeterminate diastolic function. Normal right ventricular structure and function. Mild aortic regurgitation. No evidence of pulmonary hypertension. Left Ventricular Wall Motion: Rest Echo Findings All wall segments showed normal motion. Findings: Study Quality * Technically adequate exam. ECG Findings * Normal sinus rhythm. Left Ventricle * LVEF 60%. * Normal LV chamber size, wall thickness and function. * Indeterminate diastolic function. Right Ventricle * Normal right ventricular structure and function. Left Atrium * Mildly dilated left atrium. Right Atrium * Normal right atrial size. Aortic Valve * Mildly calcified aortic valve leaflets. Unable to determine the number of leaflets. * Mild aortic regurgitation. * No aortic stenosis. Mitral Valve * Normal mitral valve structure and function. * No mitral stenosis. * Trace mitral regurgitation. Tricuspid Valve * Normal tricuspid valve structure and function. * Trace tricuspid regurgitation. * No evidence of pulmonary hypertension. Pulmonic Valve * Normal pulmonic valve structure. * Mild pulmonic regurgitation. Aorta * Normally sized aortic root. Pericardium * The pericardium appears normal. IVC * Normal IVC dimensions and inspiratory collapse. Pulmonary Artery * Normal visualized portions of the main pulmonary artery. Active Medications Acetaminophen (Tylenol) 325 mg PO Q6HR PRN PRN Reason: Pain Stop: 10/23/18 00:20 Last Admin: 04/24/18 05:40 Dose: 325 mg Aspirin (Aspirin) 81 mg PO DAILY [facility] Stop: 10/23/18 10:31 Last Admin: 04/23/18 12:35 Dose: 81 mg Atorvastatin Calcium (Lipitor) 40 mg PO HS [facility] Stop: 10/23/18 21:01 Last Admin: 04/23/18 19:42 Dose: 40 mg Clopidogrel Bisulfate (Plavix) 75 mg PO DAILY [facility] Stop: 10/23/18 09:01 Last Admin: 04/23/18 09:38 Dose: Not Given Diltiazem HCl (Cardizem Cd) 120 mg PO DAILY [facility] Stop: 10/23/18 09:01 Last Admin: 04/23/18 09:37 Dose: Not Given Hydrochlorothiazide (Hydrochlorothiazide) 12.5 mg PO DAILY [facility] Stop: 10/23/18 09:01 Last Admin: 04/23/18 09:37 Dose: Not Given Nitroglycerin (Nitroglycerin Premix 25 Mg/250 Ml) 25 mg in 250 mls @ 3 mls/hr IVC .Q24H REINA; 5 MCG/MIN PRN Reason: Protocol Stop: 10/23/18 02:01 Last Titration: 04/23/18 03:13 Dose: 10 mcg/min, 6 mls/hr Isosorbide Mononitrate (Imdur) 120 mg PO DAILY [facility] Stop: 10/23/18 09:01 Last Admin: 04/23/18 09:38 Dose: Not Given Metoprolol Tartrate (Lopressor) 25 mg PO BID [facility] Stop: 10/23/18 09:01 Last Admin: 04/23/18 19:42 Dose: 25 mg Naloxone HCl (Narcan) 0.4 mg IVP Q2MIN PRN PRN Reason: SEE COMMENTS Stop: 10/23/18 02:55 Nitroglycerin (Nitroglycerin) 0.4 mg SL Q5MIN PRN PRN Reason: Chest Pain Stop: 10/22/18 21:22 Last Admin: 04/22/18 23:50 Dose: 0.4 mg Ondansetron HCl (Zofran) 4 mg IVP Q6HR PRN; Protocol PRN Reason: Nausea Stop: 10/23/18 00:20 Last Admin: 04/23/18 00:40 Dose: 4 mg Pantoprazole Sodium (Protonix) 40 mg IVP 0630 [facility] Stop: 10/23/18 06:31 Last Admin: 04/24/18 05:36 Dose: Not Given Promethazine HCl (Phenergan) 12.5 mg IVP Q6HR PRN PRN Reason: Nausea And Vomiting option 2 Stop: 10/23/18 01:48 Last Admin: 04/23/18 01:54 Dose: 12.5 mg - Imaging and Cardiology Echo: report reviewed Consult Discharge Plan - Plan Referrals: Eva Hannon MD [Partnered Physician] -
[2018-04-24] MEDS: Aspirin 81 MG TAB.CHEW PO SCH (10:08)
[2018-04-24] MEDS: Diltiazem CD (24hr) 120 MG CAPSULE PO SCH (10:11)
[2018-04-24] MEDS: Isosorbide MONOnitrate (24 HR) 60 MG TAB.ER.24H PO SCH (10:11)
[2018-04-24] MEDS: hydroCHLOROthiazide 25 MG TABLET PO SCH (10:11)
[2018-04-24] MEDS: Nitroglycerin 25 MG/250 ML INFUS..BTL IVC SCH ×2 (10:13→19:21)
--- NOTE | 2018-04-24 10:54 | Internal Med Progress Note ---
Hospitalist Progress Note - Encounter Date of Encounter: 04/24/18 Time of Encounter: 10:49 - Subjective Interval History: Pt has no chest pain. - Exam Vitals: Temp Pulse Resp BP Pulse Ox 97.9 F 53 15 123/84 97 04/24/18 07:00 04/24/18 07:00 04/24/18 07:00 04/24/18 07:00 04/24/18 07:00 Exam: PHYSICAL EXAMINATION: GENERAL APPEARANCE: The patient is alert, oriented and in no acute distress. HEENT: Head is normocephalic. The sinuses are nontender. Pupils are equal and reactive. The nares are patent. Oropharynx clear without lesions. NECK: Supple without lymphadenopathy. HEART: Regular rate and rhythm. LUNGS: No crackles or wheezes are heard. ABDOMEN: Soft, nontender, nondistended with good bowel sounds heard. Inguinal area is normal. EXTREMITIES: Without cyanosis, clubbing or edema. NEUROLOGICAL: Gross nonfocal. SKIN: Warm and dry without any rash. - Assessment and Plan (1) Chest pain, rule out acute myocardial infarction Current Visit: Yes Status: Acute Assessment and Plan: 57-year-old male with past medical history of CAD with stents, hypertension, hyperlipidemia presented with acute onset of left-sided chest pain. Troponin was negative 3, EKG no acute ST-T change, symptoms of suspicious for unstable angina, patient was placed on Nitrol drip with relief of chest pain. - Patient had extensive CAD history with several stents placement. Last [facility] in 2013 with stent in LAD, last stress test in 2015 negative for ischemia. - Repeat echocardiogram 04/23 revealed ejection fraction 55%, mild AR. - Ideology discussed with patient, he and his family chose [facility], which was scheduled tomorrow. - Continue nitro drip, continue aspirin and Plavix, continue metoprolol and statins. (2) CAD (coronary artery disease) Current Visit: Yes Status: Acute Assessment and Plan: Same as above. (3) Hypertension Current Visit: Yes Status: Acute Assessment and Plan: BP controlled, continue home medication. (4) Hyperlipidemia Current Visit: Yes Status: Acute Assessment and Plan: Continue home medications. DVT Prophylaxis: heparin sq. - Time Spent with Patient Total time spent is greater than 50% in coordination of care (as documented) at patient's floor/unit and/or counseling patient: Greater than 35 minutes Plan of Care Discussed with: patient Internal Medicine: Result - Labs CBC & Chem 7: 04/23/18 03:53 04/24/18 05:44 Labs: BMP 04/24/18 05:44 Sodium 141 Potassium 4.1 Chloride 109 H Carbon Dioxide 25 BUN 17 Creatinine 0.96 Glucose 116 H Calcium 8.3 L - ABG Interpretation ABG results: PT/INR, D-dimer PT 11.7 Seconds (9.4-12.1) 04/22/18 21:10 - Impressions Impressions Echocardiogram 04/23/18 10:25 Impressions: LVEF 60%. Normal LV chamber size, wall thickness and function. Indeterminate diastolic function. Normal right ventricular structure and function. Mild aortic regurgitation. No evidence of pulmonary hypertension. Left Ventricular Wall Motion: Rest Echo Findings All wall segments showed normal motion. Findings: Study Quality * Technically adequate exam. ECG Findings * Normal sinus rhythm. Left Ventricle * LVEF 60%. * Normal LV chamber size, wall thickness and function. * Indeterminate diastolic function. Right Ventricle * Normal right ventricular structure and function. Left Atrium * Mildly dilated left atrium. Right Atrium * Normal right atrial size. Aortic Valve * Mildly calcified aortic valve leaflets. Unable to determine the number of leaflets. * Mild aortic regurgitation. * No aortic stenosis. Mitral Valve * Normal mitral valve structure and function. * No mitral stenosis. * Trace mitral regurgitation. Tricuspid Valve * Normal tricuspid valve structure and function. * Trace tricuspid regurgitation. * No evidence of pulmonary hypertension. Pulmonic Valve * Normal pulmonic valve structure. * Mild pulmonic regurgitation. Aorta * Normally sized aortic root. Pericardium * The pericardium appears normal. IVC * Normal IVC dimensions and inspiratory collapse. Pulmonary Artery * Normal visualized portions of the main pulmonary artery. Consult Discharge Plan - Plan Referrals: Eva Hannon MD [Partnered Physician] - (2) CAD (coronary artery disease) Qualifiers: Coronary Disease-Associated Artery/Lesion type: [place] artery [place] vs. transplanted heart: [place] heart Associated angina: with unstable angina Qualified Code(s): I25.110 - Atherosclerotic heart disease of [place] coronary artery with unstable angina pectoris (3) Hypertension Qualifiers: Hypertension type: essential hypertension Qualified Code(s): I10 - Essential (primary) hypertension (4) Hyperlipidemia Qualifiers: Hyperlipidemia type: pure hypercholesterolemia Qualified Code(s): E78.00 - Pure hypercholesterolemia, unspecified; E78.0 - Pure hypercholesterolemia
[2018-04-24] MEDS ORDERED: 0.9 % Sodium Chloride 1,000 ML ONE (12:09)
[2018-04-24] MEDS: 0.9 % Sodium Chloride 1,000 ML IVC ONE (12:11)
[2018-04-24] MEDS: *HR* Heparin 5,000 UNIT/ML VIAL SQ SCH (18:40)
[2018-04-25] MEDS: Pantoprazole 40 MG VIAL IVP SCH (06:08)
[2018-04-25] MEDS: *HR* Heparin 5,000 UNIT/ML VIAL SQ SCH ×2 (06:08→17:34)
[2018-04-25 06:22] LABS: Basophils % 0.3 %; Eosinophils # 0.5 K/mcL (0.0-0.6); Eosinophils % 7.1 %; Hematocrit 39.1 % (37.5-50.1); Hemoglobin 13.2 g/dL (12.9-16.9); Immature Granulocytes % 0.3 % (0-4); Lymphocytes # 1.6 K/mcL (0.6-4.6); Lymphocytes % 22.1 %; Mean Corpuscular HGB Conc 33.8 g/dL (31.6-35.5); Mean Corpuscular Hemoglobin 30.1 pg (28.0-33.3); Mean Corpuscular Volume 89.1 fL (83.0-100.0); Mean Platelet Volume 10.1 fL (9.4-12.4); Monocytes # 0.3 K/mcL (0.0-1.3); Monocytes % 4.4 %; Neutrophils # 4.6 K/mcL (1.6-8.9); Platelet Count 166 K/mcL (140-400); Red Blood Count 4.39 M/mcL (4.19-5.50); Red Cell Distribution Width 13.7 % (11.5-14.5); Segmented Neutrophils % 65.8 %
[2018-04-25 06:41] LABS: BUN/Creatinine Ratio 14 (6-26); Blood Urea Nitrogen 14 mg/dL (6-20); Calcium 8.6 mg/dL (8.6-10.3); Carbon Dioxide 26 mEq/L (23-29); Chloride 108 mEq/L (98-107); Glucose 114 mg/dL (70-105); Osmolality,Calculated 289 (280-300); Potassium 3.8 mEq/L (3.5-5.1); Sodium 139 mEq/L (136-145); eGFR For Non-African Americans > 60 (> 60)
[2018-04-25] MEDS: hydroCHLOROthiazide 25 MG TABLET PO SCH (08:30)
[2018-04-25] MEDS: Diltiazem CD (24hr) 120 MG CAPSULE PO SCH (08:30)
[2018-04-25] MEDS: Aspirin 81 MG TAB.CHEW PO SCH (08:30)
[2018-04-25] MEDS: Isosorbide MONOnitrate (24 HR) 60 MG TAB.ER.24H PO SCH (08:30)
--- NOTE | 2018-04-25 09:00 | Pre-Sedation Evaluation ---
Pre-sedation evaluation - Pre-sedation checklist Date of procedure: 04/25/18 Procedure: [facility] Recent Vitals: Last Vital Signs Temp 98.1 F 04/25/18 07:55 Pulse 58 04/25/18 07:55 Resp 18 04/25/18 07:55 BP 142/90 04/25/18 07:55 Pulse Ox 94 04/25/18 08:30 H&P (including ROS) documented in medical record: Yes Previous reaction to sedatives/anesthetics: No Dietary Status: NPO after Midnight Airway Assessment: Patient can open mouth completely, TMJ function normal, Micrognathia (under-bite, receding chin) absent ASA Classification *see protocol: CLASS II-Mild systemic disease Plan of Care: Pt appropriate candidate for procedure/moderate/conscious sedation , Risks/benefits of procedure/sedation discussed w/ patient/family Cardiac Registry (Cardio Only) - Functional Capacity Functional Capacity: >=4 METS with symptoms - Clincal Frailty Scale Clinical Frailty Scale: Managing Well
--- NOTE | 2018-04-25 10:58 | Internal Med Progress Note ---
Hospitalist Progress Note - Encounter Date of Encounter: 04/25/18 Time of Encounter: 10:56 - Subjective Interval History: Pt has no chest pain. - Exam Vitals: Temp Pulse Resp BP Pulse Ox 98.1 F 58 18 142/90 94 04/25/18 07:55 04/25/18 07:55 04/25/18 07:55 04/25/18 07:55 04/25/18 08:30 Exam: PHYSICAL EXAMINATION: GENERAL APPEARANCE: The patient is alert, oriented and in no acute distress. HEENT: Head is normocephalic. The sinuses are nontender. Pupils are equal and reactive. The nares are patent. Oropharynx clear without lesions. NECK: Supple without lymphadenopathy. HEART: Regular rate and rhythm. LUNGS: No crackles or wheezes are heard. ABDOMEN: Soft, nontender, nondistended with good bowel sounds heard. Inguinal area is normal. EXTREMITIES: Without cyanosis, clubbing or edema. NEUROLOGICAL: Gross nonfocal. SKIN: Warm and dry without any rash. - Assessment and Plan (1) Chest pain, rule out acute myocardial infarction Current Visit: Yes Status: Acute Assessment and Plan: 57-year-old male with past medical history of CAD with stents, hypertension, hyperlipidemia presented with acute onset of left-sided chest pain. Troponin was negative 3, EKG no acute ST-T change, symptoms of suspicious for unstable angina, patient was placed on Nitrol drip with relief of chest pain. - Patient had extensive CAD history with several stents placement. Last [facility] in 2013 with stent in LAD, last stress test in 2015 negative for ischemia. - Repeat echocardiogram 04/23 revealed ejection fraction 55%, mild AR. - Cardiology discussed with patient, he and his family chose [facility], which was scheduled today. - Continue nitro drip, continue aspirin and Plavix, continue metoprolol and statins. (2) CAD (coronary artery disease) Current Visit: Yes Status: Acute Assessment and Plan: Same as above. (3) Hypertension Current Visit: Yes Status: Acute Assessment and Plan: BP controlled, continue home medication. (4) Hyperlipidemia Current Visit: Yes Status: Acute Assessment and Plan: Continue home medications. DVT Prophylaxis: heparin sq. - Time Spent with Patient Total time spent is greater than 50% in coordination of care (as documented) at patient's floor/unit and/or counseling patient: Greater than 35 minutes Plan of Care Discussed with: patient Internal Medicine: Result - Labs CBC & Chem 7: 04/25/18 06:08 04/25/18 06:08 Labs: Short CBC 04/25/18 Range/Units 06:08 WBC 7.0 (4.3-11.1) K/mcL Hgb 13.2 (12.9-16.9) g/dL Hct 39.1 (37.5-50.1) % Plt Count 166 (140-400) K/mcL Neutrophils # 4.6 (1.6-8.9) K/mcL BMP 04/25/18 06:08 Sodium 139 Potassium 3.8 Chloride 108 H Carbon Dioxide 26 BUN 14 Creatinine 1.02 Glucose 114 H Calcium 8.6 - ABG Interpretation ABG results: PT/INR, D-dimer PT 11.7 Seconds (9.4-12.1) 04/22/18 21:10 Consult Discharge Plan - Plan Referrals: Eva Hannon MD [Partnered Physician] - (2) CAD (coronary artery disease) Qualifiers: Coronary Disease-Associated Artery/Lesion type: [place] artery [place] vs. transplanted heart: [place] heart Associated angina: with unstable angina Qualified Code(s): I25.110 - Atherosclerotic heart disease of [place] coronary artery with unstable angina pectoris (3) Hypertension Qualifiers: Hypertension type: essential hypertension Qualified Code(s): I10 - Essential (primary) hypertension (4) Hyperlipidemia Qualifiers: Hyperlipidemia type: pure hypercholesterolemia Qualified Code(s): E78.00 - Pure hypercholesterolemia, unspecified; E78.0 - Pure hypercholesterolemia
[2018-04-25] MEDS ORDERED: 0.9 % Sodium Chloride 1,000 ML ONE ×2 (12:12→12:19)
[2018-04-25] MEDS ORDERED: *HR* Heparin 10,000 UNIT/10 ML VIAL ONE (12:12)
[2018-04-25] MEDS ORDERED: Heparin 1,000 UNITS/500 mL 500 ML ONE (12:12)
[2018-04-25] MEDS ORDERED: ISOVUE-370 200 ML INFUS..BTL IV ONE (12:12)
[2018-04-25] MEDS ORDERED: Verapamil 5 MG/2 ML VIAL ONE (12:12)
[2018-04-25] MEDS ORDERED: Nitroglycerin 1,000 MCG/10 ML VIAL IV ONE (12:13)
--- NOTE | 2018-04-25 12:37 | Electrocardiograph Report ---
[place] [id number] Test Date: 2018-04-22 Pat Name: Zeke Turcios Department: 102 Room: 3B48 Gender: M Sales Marketing Manager: Ashley : 1960 Requested By: Yoni Frazier Order Number: [id number] Reading MD: Geremias Cunha Measurements Intervals [place] Rate: 78 P: 20 [place]: 172 QRS: -2 QRSD: 120 T: 17 QT: 372 QTc: 405 Interpretive Statements SINUS RHYTHM MINIMAL VOLTAGE CRITERIA FOR LVH, CONSIDER NORMAL VARIANT Electronically Signed On 04-25-2018 12:36:01 EDT by Geremias Cunha
[2018-04-25] MEDS ORDERED: *HR* Midazolam HCl 5 MG/5 ML VIAL IVP ONE (12:50)
[2018-04-25] MEDS ORDERED: *HR* FentaNYL (PF) 100 MCG/2 ML VIAL ONE (12:50)
--- NOTE | 2018-04-25 15:18 | Invasive Diagnostic Lab Proc ---
Name: Zeke Turcios Date of Study: 04/25/2018 Date: 1960 Ht: 69.0in Medical Record#: [id number] Age: 57 Wt: 244.71lb Gender: Male BSA: 2.25 Order #: [id number] BMI: 36.12 Physicians Procedure Physician: Geremias Cunha MD, [facility] Referring MD: Referring MD: Staff Name Position Time In Jacqueline Godwin RN Monitor 12:45 PM Cleo Malagon RN Customer Success Specialist 12:45 PM Day Meier RT (R) Scrub 12:45 PM Tomy Quinones RN Nurse 12:46 PM Debby Rushing RT (R) RT 12:46 PM Debby Rushing RT (R) Scrub 12:50 PM Procedures Performed Procedure L HRT ARTERY/VENTRICLE ANGIO Pre-Procedure Checklist Informed consent is complete signed and on chart. H&P is on chart. ID band is on and ID verified with patient. Patient NPO for procedure The procedure was described for the patient and questions were answered. ECG is on chart. Plan of Care Patient will tolerate the procedure without complications. Adequate level of comfort will be maintained. Hemodynamics will remain stable Patient will recover from procedure without complications. Respiratory function will be maintained. Cardiac rhythm will remain stable. Patient temperature will be maintained. Patient and/or family have verbalized understanding of the procedure. Patient Education Intravenous Access Time IV Size Location DC'd Fluid/Drip Rate Units RN 20g 1 /" Patent On Arrival Rt Antecubital 0.9NaCl Allergies No Known Allergies Vital Signs Time BP (mmHg) HR (bpm) O2 Sat. RR (bpm) LOC 12:47 PM / % 5 = Fully awake and oriented or at pre-proc level 12:47 PM / % 4 = Oriented but drowsy 12:50 PM 152 / 94 62 97 % 30 12:55 PM 142 / 88 73 96 % 31 01:00 PM 144 / 84 63 97 % 27 01:05 PM 127 / 87 64 96 % 28 01:10 PM 142 / 90 67 96 % 22 01:15 PM 146 / 95 75 97 % 20 Procedural Medications Time Medication Dose Units Method Given By 12:51 PM Oxygen 2 L/min nasal cannula Cleo Malagon RN 12:51 PM Versed 2 mg Intravenous Cleo Malagon RN 12:52 PM Fentanyl 50 mcg Intravenous Cleo Malagon RN 12:59 PM Lidocaine 2% 0.5 ml Subcutaneous Geremias Cunha MD, FACC 01:00 PM Versed 1 mg Intravenous Cleo Malagon RN 01:01 PM Fentanyl 25 mcg Intravenous Cleo Malagon RN 01:02 PM Lidocaine 2% 19 ml Subcutaneous Geremias Cunha MD, FACC 01:04 PM Versed 1 mg Intravenous Cleo Malagon RN 01:04 PM Fentanyl 25 mcg Intravenous Cleo Malagon RN ASA Classification: CLASS II- Mild systemic disease (i.e. well-controlled diabetes, hypertension, asthma, cigarette smoking) De Score Preprocedure Postprocedure Activity 2- Moves 4 extremities sustained head lift Activity 2- Moves 4 extremities sustained head lift Circulation 2- SBP +/= 20 points of pre-anesthetic level Circulation 2- SBP +/= 20 points of pre-anesthetic level Consciousness 2- Awake and alert oriented x 3 Consciousness 2- Awake and alert oriented x 3 O2 Saturation 2- Able to maintain O2 satruation of 92% on room air O2 Saturation 2- Able to maintain O2 satruation of 92% on room air Respiratory 2- Able to deep breathe and cough well Respiratory 2- Able to deep breathe and cough well Total Score 10 Total Score 10 Contrast Agent: Isovue Diagnostic Contrast: 56 ml Total Contrast: 56 ml Fluoro Dose: 4454 mGy Procedure Log Time Note Enter By 12:43 PM Pt arrived to laboratory equipment installer 2 at 12:43 [facility] 12:43 PM Patient charges- Angio tray pack, Navilyst 3mm J, Pulse Oximetry and ACIST tubing and transducer [facility] 12:44 PM CathStat 12:44 PM [facility] 12:[facility] 12:44 PM Meet and greet completed [facility] 12:44 PM Sign in performed according to hospital policy. [facility] 12:44 PM Procedure start 12:44 [facility] 12:45 PM Jacqueline Godwin RN Position: Monitor Time in: 12:45 tsoummers 12:45 PM Cleo Malagon RN Position: Customer Success Specialist Time in: 12:45 [facility] 12:46 PM Tomy Quinones RN Position: Nurse Time in: 12:46 [facility] 12:47 PM Debby Rushing RT (R) Position: RT (R) Time in: 12:46 mm 12:47 PM Hair removed from procedure site in procedure lab using clippers. Right wrist/ right groin prepped with Chloraprep by Cleo Malagon RN, then patient was draped. Skin intact. oumm 12:47 PM Time: 12:47 Patient comfortable and pain free: Yes oumm 12:47 PM Time: 12:47LOC: 5 = Fully awake and oriented or at pre-proc level [email or web address] 12:48 PM Vitals capture started with the following parameters, Patient=Adult, Interval=5 min, Initial Qoalmbwr=463 mmHg, Deflation Rate=5 mmHg, Cuff placed on Right Arm 12:49 PM Vitals capture stopped. 12:49 PM Vitals capture started with the following parameters, Patient=Adult, Interval=5 min, Initial Czdgyznc=413 mmHg, Deflation Rate=5 mmHg, Cuff placed on Right Arm 12:50 PM HR=62 bpm, YFIQ=905/94 mmhg, SpO2=97.0 %, Resp=30 B/min, EtCO2=33 mmHg, Comment=nsr 12:50 PM Recorded ECG: HR=67 Condition=Condition 1 12:51 PM Debby Rushing RT (R) Position: Scrub Time in: 12:50 [facility] 12:51 PM Time: 12:51 Oxygen on at 2 L/min per nasal cannula by Cleo Malagon RN [facility] 12:52 PM Time: 12:51 Versed 2 mg Intravenous Given by Cleo Malagon RN 12:52 PM Time: 12:52 Fentanyl 50 mcg Intravenous Given [facility] 12:52 PM ASA Class CLASS II- Mild systemic disease (i.e. well-controlled diabetes, hypertension, asthma, cigarette smoking) oumm 12:53 PM Clinical Presentation: Unstable angina tsoumm 12:55 PM HR=73 bpm, ALMJ=647/88 mmhg, SpO2=96.0 %, Resp=31 B/min, EtCO2=34 mmHg, Comment=nsr 12:58 PM Time out performed according to hospital policy mm 12:59 PM Time: 12:59 0.5 ml Lidocaine 2% to right radial Subcutaneous Given by Geremias Cunha MD, [facility] [email or web address] 01:00 PM HR=63 bpm, IDQQ=864/84 mmhg, SpO2=97.0 %, Resp=27 B/min, EtCO2=35 mmHg, Comment=nsr 01: PM Time: 13:00 Versed 1 mg Intravenous [facility] PM Time: 13: Fentanyl 25 mcg Intravenous Given by Cleo Malagon RN : PM Pressure channel 1 zeroed. 01:02 PM Unsuccessful access attempt x 2 into the right Radial artery. Manual pressure applied to achieve hemostasis.. mm: PM Time: 12:47 Patient comfortable and pain free: Yes [email or web address] : PM Time: 12:47LOC: 4 = Oriented but drowsy [email or web address] : PM Time: 13:02 19 ml Lidocaine 2% to right groin Subcutaneous Given by Geremias Cunha MD, [facility] santosh 01:04 PM Time: 13:04 Versed 1 mg Intravenous Given by Cleo Malagon RN zeeshan :04 PM Time: 13:04 Fentanyl 25 mcg Intravenous Given by [facility]agon [facility]05 PM Access obtained by percutaneous puncture. 5Fr 10cm Terumo Pillow sheath placed in right Femoral artery. [id number] [facility] 01:05 PM HR=64 bpm, IMUR=236/87 mmhg, SpO2=96.0 %, Resp=28 B/min, EtCO2=35 mmHg, Comment=nsr 01:05 PM 0.035 145cm Navilyst 3mmJ wire [id number] :05 PM 5Fr FL 4 catheter inserted over the wire [facility] :05 PM wire removed [facility]:06 PM LCA angiography performed in multiple views. mm 01:06 PM Recorded Pressure: Ao, HR=65, Condition=Condition 1 (Aorta) Ao 137/100/118 01:07 PM Lesion found in Proximal LAD. Pre Stenosis: 90 oummers 01:07 PM Lesion found in Mid Circumflex. Pre Stenosis: 90 tsoummers 01:07 PM Proximal Left Anterior Descending Coronary Artery with 90% stenosis. If graft is supplying this territory, 0 % stenosis. tsoumm 01:07 PM Circumflex, Obtuse Marginal, Left Posterior Descending, and Left Posterolateral Coronary Arteries with 90 % stenosis. If graft is supplying this area, 0 % stenosis tsoummers 01:08 PM Lesion found in 1st Diagonal. Pre Stenosis: 90 Pre [place] Flow: 3: Complete and Brisk Flow/Perfusion tsoummers 01:08 PM Mid/Distal Left Anterior Descending Coronary Artery and diagonal branches with 90% stenosis. If graft is supplying this area, 0 % stenosis tsoummers 01:09 PM Catheter removed tsoummers 01:09 PM 5Fr FR 4 catheter inserted over the wire [facility] tsoummers 01:09 PM RCA angiography performed in multiple views. tsoummers 01:09 PM Recorded Pressure: Ao, HR=80, Condition=Condition 1 (Aorta) Ao 140/110/125 01:10 PM HR=67 bpm, ATNF=841/90 mmhg, SpO2=96.0 %, Resp=22 B/min, Comment=nsr 01:10 PM Catheter removed tsoummers 01:10 PM 5Fr Pigtail catheter inserted over the wire [facility] tsoummers 01:10 PM Catheter selectively placed in left ventricle tsoummers 01:10 PM Lesion found in Distal RCA. Pre Stenosis: 60 Pre [place] Flow: tsoummers 01:10 PM Lesion found in Right PDA. Pre Stenosis: 80 Pre [place] Flow: tsoummers 01:11 PM Lesion found in Right PLB. Pre Stenosis: 90 Pre [place] Flow: tsoummers 01:12 PM Pressure channel 1 zeroed. 01:12 PM Recorded Pressure: LV, HR=68, Condition=Condition 1 (Left Ventricle) LV 131/-7/13 01:13 PM Recorded Pressure: LV, Ao, HR=71, Condition=Condition 1 (Left Ventricle) LV 134/-8/13, (Aorta) Ao 134/49/90 01:14 PM Right Coronary, Right Posterior Descending Arteries with Right Posterolateral and Acute Marginal branches with 90 % stenosis. If graft is supplying this area, 0 % stenosis tsoummers 01:14 PM Conversation between Interventionalist and CT Surgeon. tsoummers 01:14 PM Bolus angiogram of left Ventricle complete: 10 ml/sec for a total of 30 mls tsoummers 01:14 PM Catheter removed tsoummers 01:14 PM Procedure completed at 13:14 04/25/2018 tsoummers 01:14 PM Did you address [place] flow and Dominance? Yes tsoummers 01:15 PM Sign out completed: Radiation Dose 385.25 mGy, 4454.38 cGy/cm2 Fluoro Time: 1.7 Isovue 370 - 200ml contrast 56 ml given by Geremias Cunha MD, [facility]. Complications: NoneCardiac Rehab Consult needed: YesConfirmed administered medications: Yes tsoummers 01:15 PM HR=75 bpm, KOMB=197/95 mmhg, SpO2=97.0 %, Resp=20 B/min, EtCO2=37 mmHg, Comment=nsr 01:16 PM Isovue 370 - 200ml,1 Bottle(s) used. tsoummers 01:16 PM Arterial sheath pulled, Mynx closure device used and was Successful [id number] S/N. tsoummers 01:16 PM Estimated Blood Loss: minimal tsoummers 01:17 PM Post ECG NSR tsoummers 01:17 PM Post Blood Pressure 146/95 tsoummers 01:17 PM Information taught Cardiac Cath and Mynx tsoummers 01:17 PM Education needs Procedure, Plan of Care, Disease Process, and Responsibilities of Patient in Care tsoummers 01:17 PM Learning barriers :None tsoummers 01:17 PM Education Methods Verbal tsoummers 01:17 PM Education evaluation Able to repeat information tsoummers 01:17 PM Site status No bleeding/hematoma - Rt Groin as reported by Debby Rushing RT (R) at 13:17 tsoummers 01:17 PM Opsite applied tsoummers 01:18 PM Plavix, Effient or Brilinta given No tsoummers 01:18 PM Delay to floor No tsoummers 01:18 PM Family placed in consult room. tsoummers 01:18 PM Complications: None tsoummers 01:18 PM Coronary Dominance: right tsoummers 01:21 PM Report given to Sol WALTERS Pt taken to 3B Room #48. 13:21 tsoummers 01:21 PM Patient out of room: 13:21 tsoummers 01:21 PM paging center called for CT surgeon- Dr. Buzz knox Complications Complication None Hemodynamics Pressures Site Systolic/A Wave Diastolic/V Wave Mean AO 137 100 118 AO 140 110 125 LV 131 -7 13 LV 134 -8 13 AO 134 49 90 Post Procedure Information Blood Pressure: 146/95 mmHg Rhythm: NSR Post procedural instructions were given Surgery consult for CABG Closure Device Time Device Success/Fail 04/25/2018 1:16:00 PM MynxGrip Successful Site Checks Time Location Status Staff Sheath In? Note 01:17 PM Rt Groin No bleeding/hematoma Debby Rushing RT (R) Pulses Time Site Pre-Procedure Post-Procedure Note Bilateral DP & PT 2+ Bilateral radial 2+ Updated by Jacqueline Godwin RN on 04/25/2018 1:22:45 PM electronically signed on 04/25/2018 3:10:02 PM with status of Final
--- NOTE | 2018-04-25 17:03 | Cardiothoracic Consult Note ---
Date of Encounter: 04/25/18 Time of Encounter: 16:57 Assessment and Plan (1) CAD (coronary artery disease) Current Visit: Yes Status: Acute The patient is a 57-year-old hypertensive man with hypercholesterolemia and known CAD. He is admitted to [facility] on Wednesday, 2017 with repeated episodes of substernal chest pain radiating to his neck, shortness breath, dyspnea exertion, lightheadedness, nausea, and vomiting. The pain resolved after he was given sublingual nitroglycerin and started on a nitroglycerin drip. He has had no further episodes of substernal chest pain. He underwent cardiac catheterization today was found to have severe 3 vessel CAD and an LVEF 50%. In particular the patient has a 90% proximal LAD lesion, 90% proximal D1 lesion, an 80% mid LCx lesion (small vessel), a 60% mid RCA lesion, and a 90% proximal PDA lesion. The distal LAD appears to be diffusely diseased and small. Ideally, the patient should undergo CABG; however, the distal LAD and distal LCx may not be bypassable. The STS risk calculator reveals an operative mortality risk 0.42%, deep sternal wound infection risk 0.28%, permanent stroke risk 0.38%, renal failure risk 1.28%, and reoperation risk 2.94%. Although the patient appears to be a low risk patient, he may not be able to be completely revascularized due to the severe, diffuse distal disease. The patient and his are aware of this fact. The patient has been on Plavix for his NICA, and this will be stopped for 4 days preoperatively. Tentatively, the patient is scheduled for CABG on 05/30/2018. The assessment and plan as outlined above was discussed with the patient and/or family members who expressed understanding and agreement. All questions were answered. Qualifiers: Coronary Disease-Associated Artery/Lesion type: [place] artery [place] vs. transplanted heart: [place] heart Associated angina: with unstable angina Qualified Code(s): I25.110 - Atherosclerotic heart disease of [place] coronary artery with unstable angina pectoris - History of Present Illness Consult date: 04/25/18 Requesting physician: Geermias Cunha Consult reason: CABG evaluation Chief complaint: Substernal chest pain, shortness of breath, nausea History of present illness: Mr. Turcios is a 57 year old hypertensive man with hypercholesterolemia and known CAD who was admitted to [facility] on 04/22/2018. The patient's cardiac history dates back to 2010, at which time he underwent venous catheter intervention and stent placement. It is unclear which coronary artery was stented. The patient had persistent symptoms and underwent repeat intervention 6 weeks after the initial procedure, with placement of 2 additional stents. He subsequently underwent a third cardiac intervention 6 months later and his last cardiac intervention was in November 2013. At that time he underwent PTCA and LAD stent placement. Recently, the patient has complained of exertional substernal chest pressure radiating to his neck, as well as shortness of breath and fatigue. On the night of admission the patient had severe substernal chest pain and associated shortness of breath, dyspnea exertion, lightheadedness, nausea, and vomiting. The patient had repeated episodes at home and was eventually convinced by his to be evaluated at [facility] emergency department. During the evaluation the patient had subsequent episodes of substernal chest pain and was admitted for further cardiac workup. The patient underwent a transthoracic echocardiogram which revealed an LVEF 60% with normal left ventricular chamber size, wall thickness, and function. The cardiac catheterization performed today revealed 3 vessel CAD and it LVEF 50%. In particular, the patient has a 90% proximal LAD lesion with distal diffuse disease in a small vessel, a 90% proximal D1 lesion, a 90% mid LCx lesion ( small vessel), a 60% mid RCA lesion, and a 90% proximal PDA lesion. The patient has been recommended for CABG. Past Med Surg Social Fam HX - Past Medical History Medical history: coronary artery disease, hyperlipidemia, hypertension, myocardial infarction Additional medical history: 5 stents, appy Psychiatric history: no psych history - Past Surgical History Surgical History: angioplasty/stent, appendectomy, vasectomy Additional surgical history: heart stents - Social History Smoking Status: Former smoker Packs per day: 4 PPD x 15 YRS (patient quit 30 years ago) Smokeless Tobacco Status: No Alcohol use: none Drug use: none Occupational status: employed Current living situation: Home - Independent Activity Level: Independent ambulation Recent Out of Country Travel Within the Last 8 Weeks: No Exposure or Possible Exposure to Illness During Travel: No - Family History Mother Living Status: Still Living Hx Family Cardiac Disorders: Yes Hx Family Cancer: Yes (colon) Hx Family Endocrine Disorder: Yes (DM) Father Living Status: Still Living Hx Family Cardiac Disorders: Yes ([place]) Medications and Allergies Atorvastatin [Lipitor] 40 mg PO HS 04/22/18 [History] Clopidogrel [Plavix] 75 mg PO DAILY 04/22/18 [History] Hydrochlorothiazide [Microzide] 12.5 mg PO DAILY 04/22/18 [History] Isosorbide MONOnitrate [Isosorbide Mononitrate ER] 120 mg PO DAILY 04/22/18 [ History] Metoprolol [Lopressor] 25 mg PO BID 04/22/18 [History] dilTIAZem HCl [Diltiazem 24Hr Cd] 120 mg PO DAILY 04/22/18 [History] 3 Allergy/AdvReac Type Severity Reaction Status Date / Time No Known Allergies Allergy Verified 04/22/18 21:47 All Systems Review: The remainder of the systems were reviewed and are negative Physical Examination Vital Signs, Last 4 Hours Pulse Resp BP 04/25/18 13:50 67 17 140/87 General: Conversant, No Apparent Distress HEENT: Atraumatic, Normocephaly, Trachea midline Neck: No JVD, Normal carotid pulses Cardiac: Reg Rate and Rhythm Lungs: Normal Breath Sounds, No Wheeze, Rales, Rhonchi Neuro: Alert and responsive, No focal deficits noted, Motor nerves intact, Sensory nerves intact Vascular: Normal capillary refill Abdomen: Soft, Non-tender Skin: No rashes noted on visualized skin Musculoskeletal: No Chest Wall Tenderness Extremities: No Clubbing, No Cyanosis, No Edema, Normal Pulses Results 04/25/18 06:08 04/25/18 06:08 Lab Results, Last 24 hours 04/25/18 04/25/18 06:08 06:08 WBC 7.0 Hgb 13.2 Hct 39.1 Plt Count 166 Sodium 139 Potassium 3.8 Chloride 108 H Carbon Dioxide 26 BUN 14 Creatinine 1.02 Glucose 114 H Calcium 8.6 - Imaging Chest Xray: image reviewed (Normal cardiac size. No active pulmonary disease.) Consult Discharge Plan - Plan Referrals: Eva Hannon MD [Partnered Physician] -
[2018-04-25 18:46] LABS: Estimated Average Glucose 134 mg/dl; Hemoglobin A1C 6.3 %
[2018-04-26] MEDS: Nitroglycerin 25 MG/250 ML INFUS..BTL IVC SCH (02:22)
[2018-04-26] MEDS: Pantoprazole 40 MG VIAL IVP SCH (05:26)
[2018-04-26] MEDS: *HR* Heparin 5,000 UNIT/ML VIAL SQ SCH ×2 (05:26→17:48)
[2018-04-26 06:28] LABS: Basophils % 0.1 %; Eosinophils # 0.4 K/mcL (0.0-0.6); Eosinophils % 6.3 %; Hematocrit 42.8 % (37.5-50.1); Hemoglobin 14.7 g/dL (12.9-16.9); Immature Granulocytes % 0.1 % (0-4); Lymphocytes # 1.4 K/mcL (0.6-4.6); Lymphocytes % 21.1 %; Mean Corpuscular HGB Conc 34.3 g/dL (31.6-35.5); Mean Corpuscular Hemoglobin 30.8 pg (28.0-33.3); Mean Corpuscular Volume 89.5 fL (83.0-100.0); Mean Platelet Volume 10.5 fL (9.4-12.4); Monocytes # 0.4 K/mcL (0.0-1.3); Monocytes % 5.2 %; Neutrophils # 4.5 K/mcL (1.6-8.9); Platelet Count 182 K/mcL (140-400); Red Blood Count 4.78 M/mcL (4.19-5.50); Red Cell Distribution Width 13.4 % (11.5-14.5); Segmented Neutrophils % 67.2 %
[2018-04-26 06:48] LABS: BUN/Creatinine Ratio 14 (6-26); Blood Urea Nitrogen 14 mg/dL (6-20); Calcium 9.1 mg/dL (8.6-10.3); Carbon Dioxide 27 mEq/L (23-29); Chloride 106 mEq/L (98-107); Glucose 106 mg/dL (70-105); Osmolality,Calculated 287 (280-300); Sodium 138 mEq/L (136-145); eGFR For Non-African Americans > 60 (> 60)
[2018-04-26] MEDS: Isosorbide MONOnitrate (24 HR) 60 MG TAB.ER.24H PO SCH (08:35)
[2018-04-26] MEDS: hydroCHLOROthiazide 25 MG TABLET PO SCH (08:35)
[2018-04-26] MEDS: Aspirin 81 MG TAB.CHEW PO SCH (08:35)
[2018-04-26] MEDS: Diltiazem CD (24hr) 120 MG CAPSULE PO SCH (08:35)
--- NOTE | 2018-04-26 08:43 | Cardiothoracic Progress Note ---
Date of Encounter: 04/26/18 Time of Encounter: 08:41 - Assessment and plan (1) CAD (coronary artery disease) Current Visit: Yes Status: Acute The assessment and plan as outlined above was discussed with the patient and/or family members who expressed understanding and agreement. All questions were answered. The patient will be scheduled for open heart surgery on Wednesday. We are awaiting washout of his Plavix. Qualifiers: Coronary Disease-Associated Artery/Lesion type: [place] artery [place] vs. transplanted heart: [place] heart Associated angina: with unstable angina Qualified Code(s): I25.110 - Atherosclerotic heart disease of [place] coronary artery with unstable angina pectoris - Subjective Interval history: The patient has had no angina and no chest pain. He has no complaints. Vital Signs, Last 4 Hours Temp Pulse Resp BP Pulse Ox 04/26/18 06:48 97.8 F 56 14 143/87 96 Oxgyen Flow Rate Oxygen Flow Rate (LPM) 2.5 Weight 04/24/18 04/25/18 04/26/18 23:59 23:59 23:59 Weight 110.2 kg 111 kg 108 kg Lungs are clear to percussion and auscultation. Heart is in a normal sinus rhythm. - Labs 04/26/18 05:46 04/26/18 05:46 Lab Results, Last 24 hours 04/26/18 04/26/18 05:46 05:46 WBC 6.7 Hgb 14.7 D Hct 42.8 Plt Count 182 Sodium 138 Potassium 4.0 Chloride 106 Carbon Dioxide 27 BUN 14 Creatinine 1.02 Glucose 106 H Calcium 9.1 Consult Discharge Plan - Plan Referrals: Eva Hannon MD [Partnered Physician] -
--- NOTE | 2018-04-26 09:53 | Internal Med Progress Note ---
Hospitalist Progress Note - Encounter Date of Encounter: 04/26/18 Time of Encounter: 09:53 - Subjective Interval History: Patient seen and examined at bedside. Currently denies any CP or SOB, advised patient to report to nursing any CP. Patient is waiting for scheduled open heart surgery on Wednesday Holding Plavix - Exam Vitals: Temp Pulse Resp BP Pulse Ox 97.8 F 56 14 143/87 96 04/26/18 06:48 04/26/18 06:48 04/26/18 06:48 04/26/18 06:48 04/26/18 06:48 Exam: PHYSICAL EXAMINATION: GENERAL APPEARANCE: The patient is alert, oriented and in no acute distress. HEENT: Head is normocephalic. The sinuses are nontender. Pupils are equal and reactive. The nares are patent. Oropharynx clear without lesions. NECK: Supple without lymphadenopathy. HEART: Regular rate and rhythm. LUNGS: No crackles or wheezes are heard. ABDOMEN: Soft, nontender, nondistended with good bowel sounds heard. Inguinal area is normal. EXTREMITIES: Without cyanosis, clubbing or edema. NEUROLOGICAL: Gross nonfocal. SKIN: Warm and dry without any rash. - Assessment and Plan (1) Chest pain, rule out acute myocardial infarction Current Visit: Yes Status: Acute Assessment and Plan: 57-year-old male with past medical history of CAD with stents, hypertension, hyperlipidemia presented with acute onset of left-sided chest pain. Troponin was negative 3, EKG no acute ST-T change, symptoms of suspicious for unstable angina, patient was placed on Nitrol drip with relief of chest pain. - Patient had extensive CAD history with several stents placement. Last C in 2013 with stent in LAD, last stress test in 2015 negative for ischemia. - Repeat echocardiogram 04/23 revealed ejection fraction 55%, mild AR. - Cardiology consulted [facility] completed which revealed severe 3 vessel CAD -CT surgery consulted Plan for CABG Wednesday -Hold Plavix for now- cont ASA metoprolol statin- resume nitro gtt if expereince CP (2) Hypertension Current Visit: Yes Status: Acute Assessment and Plan: BP controlled, continue home medication. (3) Hyperlipidemia Current Visit: Yes Status: Acute Assessment and Plan: Continue home medications. (4) CAD (coronary artery disease) Current Visit: Yes Status: Acute Assessment and Plan: See above. DVT Prophylaxis: heparin sq. - Time Spent with Patient Total time spent is greater than 50% in coordination of care (as documented) at patient's floor/unit and/or counseling patient: Internal Medicine: Result - Labs CBC & Chem 7: 04/26/18 05:46 04/26/18 05:46 Labs: Short CBC 04/26/18 Range/Units 05:46 WBC 6.7 (4.3-11.1) K/mcL Hgb 14.7 D (12.9-16.9) g/dL Hct 42.8 (37.5-50.1) % Plt Count 182 (140-400) K/mcL Neutrophils # 4.5 (1.6-8.9) K/mcL BMP 04/26/18 05:46 Sodium 138 Potassium 4.0 Chloride 106 Carbon Dioxide 27 BUN 14 Creatinine 1.02 Glucose 106 H Calcium 9.1 - ABG Interpretation ABG results: PT/INR, D-dimer PT 11.7 Seconds (9.4-12.1) 04/22/18 21:10 Consult Discharge Plan - Plan Referrals: Eva Hannon MD [Partnered Physician] - (2) Hypertension Qualifiers: Hypertension type: essential hypertension Qualified Code(s): I10 - Essential (primary) hypertension (3) Hyperlipidemia Qualifiers: Hyperlipidemia type: pure hypercholesterolemia Qualified Code(s): E78.00 - Pure hypercholesterolemia, unspecified; E78.0 - Pure hypercholesterolemia (4) CAD (coronary artery disease) Qualifiers: Coronary Disease-Associated Artery/Lesion type: [place] artery [place] vs. transplanted heart: [place] heart Associated angina: with unstable angina Qualified Code(s): I25.110 - Atherosclerotic heart disease of [place] coronary artery with unstable angina pectoris
--- NOTE | 2018-04-26 10:20 | Cardiology Progress Note ---
Date of Encounter: 04/26/18 Time of Encounter: 10:17 Assessment and Plan (1) Unstable angina Current Visit: Yes Status: Acute Symptoms concerning for unstable angina. Chest discomfort, n/v, dyspnea and fatigue at rest, improvement on nitro gtt. Troponins negative x 3. EKG no acute changes. TTE EF preserved, mild AR. LHC yesterday revealed severe 3 vessel CAD. Seen and evaluated by CT surgery. Plan is for CABG on Wednesday. Right femoral access site healing well. No bleeding, hematoma or ecchymosis noted. Cardiology signing off. Reconsult PRN. Will coordinate outpt follow-up in 4-6 weeks. (2) CAD (coronary artery disease) Current Visit: Yes Status: Acute Hx CAD and multiple PCI, most recent 2013. S/P LHC yesterday, plan for CABG Wednesday. ASA, Statin, BB, nitrates. Qualifiers: Coronary Disease-Associated Artery/Lesion type: [place] artery [place] vs. transplanted heart: [place] heart Associated angina: with unstable angina Qualified Code(s): I25.110 - Atherosclerotic heart disease of [place] coronary artery with unstable angina pectoris Discussion w patient/family: The assessment and plan as outlined above was discussed with the patient and/or family members who expressed understanding and agreement. All questions were answered. Thank you for involving us in the care of your patient. Please call with any questions. I will discuss all the above with Dr. Meléndez and make changes as necessary. Subjective Principal diagnosis: Unstable angina Interval history: S/P LHC yesterday--severe [address] surgery evaluated and plan for CABG Wednesday. Pt currently chest pain free. No acute complaints. Objective Vital Signs, Last 4 Hours Temp Pulse Resp BP Pulse Ox 04/26/18 06:48 97.8 F 56 14 143/87 96 Vital Signs Temp Pulse Resp BP Pulse Ox 04/26/18 06:48 97.8 F 56 14 143/87 96 04/26/18 02:53 98.1 F 64 15 131/87 96 04/25/18 22:41 97.9 F 89 16 148/98 94 04/25/18 19:03 98.5 F 66 15 150/93 93 04/25/18 15:50 65 18 144/88 91 04/25/18 15:20 72 17 129/85 94 04/25/18 14:50 72 18 143/91 96 04/25/18 14:35 66 18 127/83 90 04/25/18 14:25 66 18 135/91 94 04/25/18 14:10 66 17 133/92 94 04/25/18 13:50 67 17 140/87 04/25/18 11:30 98.7 F 69 18 162/95 94 Intake and Output 04/25/18 04/26/18 04/26/18 23:59 07:59 15:59 Intake Total 840 / 840 Balance 840 / 840 Intake: Oral 840 / 840 Other: Meal Dinner Percent of Meal Consumed 100% # Voids 2 Weight 108 kg Patient Weight 04/26/18 23:59 Weight 108 kg General: Conversant, No Apparent Distress HEENT: Atraumatic, Normocephaly, Mucus Membranes Moist Neck: No JVD, Normal carotid pulses Cardiac: Reg Rate and Rhythm, Normal S1 and S2, No Murmur Lungs: Normal Breath Sounds, No Wheeze, Rales, Rhonchi Neuro: Alert and responsive, No focal deficits noted Abdomen: Soft, Non-Tender Skin: Other (right femoral access site healing well. No bleeding, hematoma or ecchymosis noted.) Musculoskeletal: No Chest Wall Tenderness Extremities: No Clubbing, No Cyanosis, No Edema, Normal Pulses Results 04/26/18 05:46 04/26/18 05:46 Lab Results 04/26/18 04/26/18 05:46 05:46 WBC 6.7 Hgb 14.7 D Hct 42.8 Plt Count 182 Sodium 138 Potassium 4.0 Chloride 106 Carbon Dioxide 27 BUN 14 Creatinine 1.02 Glucose 106 H Calcium 9.1 Short CBC 04/26/18 Range/Units 05:46 WBC 6.7 (4.3-11.1) K/mcL Hgb 14.7 D (12.9-16.9) g/dL Hct 42.8 (37.5-50.1) % Plt Count 182 (140-400) K/mcL Neutrophils # 4.5 (1.6-8.9) K/mcL BMP 04/26/18 Range/Units 05:46 Sodium 138 (136-145) mEq/L Potassium 4.0 (3.5-5.1) mEq/L Chloride 106 (98-107) mEq/L Carbon Dioxide 27 (23-29) mEq/L BUN 14 (6-20) mg/dL Creatinine 1.02 (0.70-1.30) mg/dL Glucose 106 H (70-105) mg/dL Calcium 9.1 (8.6-10.3) mg/dL Active Medications Acetaminophen (Tylenol) 325 mg PO Q6HR PRN PRN Reason: Pain Stop: 10/23/18 00:20 Last Admin: 04/24/18 05:40 Dose: 325 mg Aspirin (Aspirin) 81 mg PO DAILY [facility] Stop: 10/23/18 10:31 Last Admin: 04/26/18 08:35 Dose: 81 mg Atorvastatin Calcium (Lipitor) 40 mg PO HS [facility] Stop: 10/23/18 21:01 Last Admin: 04/25/18 20:29 Dose: 40 mg Chlorhexidine Gluconate (Chlorhexidine Rinse) 15 ml MM BID [facility] Stop: 04/29/18 09:01 Diltiazem HCl (Cardizem Cd) 120 mg PO DAILY [facility] Stop: 10/23/18 09:01 Last Admin: 04/26/18 08:35 Dose: 120 mg Heparin Sodium (Porcine) (Heparin) 5,000 unit SQ Q12HCO [facility] Stop: 10/24/18 18:01 Last Admin: 04/26/18 05:26 Dose: 5,000 unit Hydrochlorothiazide (Hydrochlorothiazide) 12.5 mg PO DAILY [facility] Stop: 10/23/18 09:01 Last Admin: 04/26/18 08:35 Dose: 12.5 mg Nitroglycerin (Nitroglycerin Premix 25 Mg/250 Ml) 25 mg in 250 mls @ 3 mls/hr IVC .Q24H REINA; 5 MCG/MIN PRN Reason: Protocol Stop: 10/23/18 02:01 Last Admin: 04/26/18 02:22 Dose: Not Given Cefazolin Sodium (Ancef Syringe 2,000 Mg/20 Ml) 2,000 mg in 20 mls @ 200 mls/ hr IVPB PREOP ONE Stop: 04/29/18 07:05 Isosorbide Mononitrate (Imdur) 120 mg PO DAILY [facility] Stop: 10/23/18 09:01 Last Admin: 04/26/18 08:35 Dose: 120 mg Metoprolol Tartrate (Lopressor) 25 mg PO BID [facility] Stop: 10/23/18 09:01 Last Admin: 04/26/18 08:35 Dose: 25 mg Naloxone HCl (Narcan) 0.4 mg IVP Q2MIN PRN PRN Reason: SEE COMMENTS Stop: 10/23/18 02:55 Nitroglycerin (Nitroglycerin) 0.4 mg SL Q5MIN PRN PRN Reason: Chest Pain Stop: 10/22/18 21:22 Last Admin: 04/22/18 23:50 Dose: 0.4 mg Ondansetron HCl (Zofran) 4 mg IVP Q6HR PRN; Protocol PRN Reason: Nausea Stop: 10/23/18 00:20 Last Admin: 04/23/18 00:40 Dose: 4 mg Pantoprazole Sodium (Protonix) 40 mg IVP 0630 [facility] Stop: 10/23/18 06:31 Last Admin: 04/26/18 05:26 Dose: 40 mg Promethazine HCl (Phenergan) 12.5 mg IVP Q6HR PRN PRN Reason: Nausea And Vomiting option 2 Stop: 10/23/18 01:48 Last Admin: 04/23/18 01:54 Dose: 12.5 mg - Imaging and Cardiology Echo: report reviewed Cardiac cath: report reviewed - EKG Interpretation EKG results cardiology: other (12 hr tele AVG HR 59, SR, no significant pauses or arrhythmias) Consult Discharge Plan - Plan Referrals: Eva Hannon MD [Partnered Physician] -
--- NOTE | 2018-04-26 12:15 | Anesthesia Evaluation PreOp ---
Date of Encounter: 04/29/18 Time of Encounter: 08:14 - Past History Planned Operation: CABG Cardiac History: HI, Angina, HTN, Hyperlipidemia, Cardiac Stent (x5), Other (CAD ) Pulmonary History: Former smoker, Pack/yr (60) INTERVENTIONAL PAIN PHYSICIAN History: Denies Any Significant HX Other Medical History: Denies Any Significant HX Anesthesia History: No Prior Anesthetic Complications, Past Anesthesia (appy) Alcohol Use: none Drug use: none Medications and Allergies Atorvastatin [Lipitor] 40 mg PO HS 04/22/18 [History] Clopidogrel [Plavix] 75 mg PO DAILY 04/22/18 [History] Hydrochlorothiazide [Microzide] 12.5 mg PO DAILY 04/22/18 [History] Isosorbide MONOnitrate [Isosorbide Mononitrate ER] 120 mg PO DAILY 04/22/18 [ History] Metoprolol [Lopressor] 25 mg PO BID 04/22/18 [History] dilTIAZem HCl [Diltiazem 24Hr Cd] 120 mg PO DAILY 04/22/18 [History] 3 Allergy/AdvReac Type Severity Reaction Status Date / Time No Known Allergies Allergy Verified 04/22/18 21:47 - Meds/Allergy Pre-op Review Medications Reviewed: Yes Allergies Reviewed: Yes Beta Blockers on Current Med List: Yes If Beta Blockers taken, Date/Time (Last Dose taken): today 0551 Anesthesia Results - Labs 04/29/18 05:10 04/29/18 05:10 - Imaging EKG: report reviewed (SINUS RHYTHM MINIMAL VOLTAGE CRITERIA FOR LVH, CONSIDER NORMAL VARIANT) Chest x-ray: report reviewed (The cardiac silhouette is within normal limits for size. The pulmonary vasculature is within normal limits. There is no focal consolidation, pleural effusion or pneumothorax. The visualized osseous structures demonstrate no acute abnormality.) Additional studies: echo: Impressions: LVEF 60%. Normal LV chamber size, wall thickness and function. Indeterminate diastolic function. Normal right ventricular structure and function. Mild aortic regurgitation. No evidence of pulmonary hypertension. cath: mpressions: There is severe three vessel coronary artery disease, intermediate SYNTAX score and proximal LAD/diagonal bifurcation stenosis The left ventricle is normal and has normal contractility EF 50% consult: he patient has a 90% proximal LAD lesion, 90% proximal D1 lesion, an 80 % mid LCx lesion (small vessel), a 60% mid RCA lesion, and a 90% proximal PDA lesion. The distal LAD appears to be diffusely diseased and small. Ideally, the patient should undergo CABG; however, the distal LAD and distal LCx may not be bypassable. Anesthesia Exam Selected Entries 04/29/18 06:30 Temperature 98.4 F Pulse Rate 71 Respiratory Rate 17 Blood Pressure 135/94 O2 Sat by Pulse Oximetry 92 Oxygen Delivery Method Room Air Weight: 111kg NPO (# of Hours): 8 - HEENT Pupil (Motor): EOMI Mallampati: II Teeth: Edentulous Oral Opening: Greater than 3 - INTERVENTIONAL PAIN PHYSICIAN LOC: Oriented INTERVENTIONAL PAIN PHYSICIAN Motor: Normal RUE, Normal LUE, Normal RLE, Normal LLE, Normal Face INTERVENTIONAL PAIN PHYSICIAN Sensory: Normal: RUE, LUE, RLE, LLE, Face - Cardiac Rhythm: Regular Murmur: None - Pulmonary Breath Sounds: bilateral Clear Respiratory Effort: Symmetrical Anesthesia Assess/Plan ASA Score: 4 Modified [place] Scale for Level of Consciousness: Cooperative, oriented, and tranquil Anesthetic Plan: General Monitoring Plan: Standard Monitors, A-Line, PAC, ADELAIDA Recovery Plan: ICU (agrees to GA, lines, ADELAIDA and blood)
[2018-04-26] MEDS: Acetaminophen 325 MG TABLET PO PRN ×2 (15:26→21:58)
--- NOTE | 2018-04-26 17:43 | Electrocardiograph Report ---
[place] [id number] Test Date: 2018-04-23 Pat Name: Zeke Turcios Department: 113 Room: 3B Gender: M Accounting Officer: : 1960 Requested By: Yoni Frazier Order Number: [id number] Reading MD: Juliana Freed Measurements Intervals [place] Rate: 77 P: 27 MT: 207 QRS: -13 QRSD: 121 T: 0 QT: 380 QTc: 412 Interpretive Statements SINUS RHYTHM MODERATE INTRAVENTRICULAR CONDUCTION DELAY MODERATE VOLTAGE CRITERIA FOR LVH, CONSIDER NORMAL VARIANT Electronically Signed On 04-26-2018 17:41:51 EDT by Juliana Freed
[2018-04-27] MEDS: Nitroglycerin 25 MG/250 ML INFUS..BTL IVC SCH (01:54)
[2018-04-27] MEDS: Acetaminophen 325 MG TABLET PO PRN ×2 (05:33→15:21)
[2018-04-27] MEDS: Pantoprazole 40 MG VIAL IVP SCH (05:33)
[2018-04-27] MEDS: *HR* Heparin 5,000 UNIT/ML VIAL SQ SCH ×2 (05:33→18:28)
[2018-04-27 06:11] LABS: Basophils % 0.4 %; Eosinophils # 0.4 K/mcL (0.0-0.6); Eosinophils % 4.5 %; Hematocrit 43.4 % (37.5-50.1); Hemoglobin 14.9 g/dL (12.9-16.9); Immature Granulocytes % 0.2 % (0-4); Lymphocytes # 1.9 K/mcL (0.6-4.6); Lymphocytes % 23.3 %; Mean Corpuscular HGB Conc 34.3 g/dL (31.6-35.5); Mean Corpuscular Hemoglobin 30.7 pg (28.0-33.3); Mean Corpuscular Volume 89.5 fL (83.0-100.0); Mean Platelet Volume 10.5 fL (9.4-12.4); Monocytes # 0.4 K/mcL (0.0-1.3); Monocytes % 5.2 %; Neutrophils # 5.4 K/mcL (1.6-8.9); Platelet Count 207 K/mcL (140-400); Red Blood Count 4.85 M/mcL (4.19-5.50); Red Cell Distribution Width 13.4 % (11.5-14.5); Segmented Neutrophils % 66.4 %
[2018-04-27 06:29] LABS: BUN/Creatinine Ratio 17 (6-26); Blood Urea Nitrogen 18 mg/dL (6-20); Calcium 9.4 mg/dL (8.6-10.3); Carbon Dioxide 27 mEq/L (23-29); Chloride 104 mEq/L (98-107); Glucose 118 mg/dL (70-105); Osmolality,Calculated 289 (280-300); Potassium 3.9 mEq/L (3.5-5.1); Sodium 138 mEq/L (136-145); eGFR For Non-African Americans > 60 (> 60)
--- NOTE | 2018-04-27 08:36 | Cardiothoracic Progress Note ---
Date of Encounter: 04/27/18 Time of Encounter: 08:35 - Assessment and plan (1) CAD (coronary artery disease) Current Visit: Yes Status: Acute The patient is a 57-year-old hypertensive man with hypercholesterolemia and known CAD. He is admitted to [facility] on Wednesday, 2017 with repeated episodes of substernal chest pain radiating to his neck, shortness breath, dyspnea exertion, lightheadedness, nausea, and vomiting. The pain resolved after he was given sublingual nitroglycerin and started on a nitroglycerin drip. He has had no further episodes of substernal chest pain. He underwent cardiac catheterization today was found to have severe 3 vessel CAD and an LVEF 50%. In particular the patient has a 90% proximal LAD lesion, 90% proximal D1 lesion, an 80% mid LCx lesion (small vessel), a 60% mid RCA lesion, and a 90% proximal PDA lesion. The distal LAD appears to be diffusely diseased and small. Ideally, the patient should undergo CABG; however, the distal LAD and distal LCx may not be bypassable. The STS risk calculator reveals an operative mortality risk 0.42%, deep sternal wound infection risk 0.28%, permanent stroke risk 0.38%, renal failure risk 1.28%, and reoperation risk 2.94%. Although the patient appears to be a low risk patient, he may not be able to be completely revascularized due to the severe, diffuse distal disease. The patient and his are aware of this fact. The patient has been on Plavix for his NICA, and this will be stopped for 4 days preoperatively. Tentatively, the patient is scheduled for CABG on 05/30/2018. The assessment and plan as outlined above was discussed with the patient and/or family members who expressed understanding and agreement. All questions were answered. Qualifiers: Coronary Disease-Associated Artery/Lesion type: [place] artery [place] vs. transplanted heart: [place] heart Associated angina: with unstable angina Qualified Code(s): I25.110 - Atherosclerotic heart disease of [place] coronary artery with unstable angina pectoris - Subjective Interval history: The patient remained stable overnight. He has no complaints of chest pain. Vital Signs, Last 4 Hours Temp Pulse Resp BP Pulse Ox 04/27/18 06:55 97.9 F 58 18 127/80 96 Oxgyen Flow Rate Oxygen Flow Rate (LPM) 2.5 Clinical Data, last 8 Hours Output, Urine Amount 325 Weight 04/25/18 04/26/18 04/27/18 23:59 23:59 23:59 Weight 111 kg 108 kg 111.2 kg - Physical Examination General: Conversant, No Apparent Distress Neck: No JVD, Normal carotid pulses Cardiac: Reg Rate and Rhythm, Normal S1 and S2, No Murmur Lungs: Normal Breath Sounds, No Wheeze, Rales, Rhonchi Neuro: Alert and responsive, No focal deficits noted Vascular: Normal capillary refill Musculoskeletal: No Chest Wall Tenderness Extremities: No Clubbing, No Cyanosis, No Edema, Normal Pulses - Labs 04/27/18 05:30 04/27/18 05:30 Lab Results, Last 24 hours 04/27/18 04/27/18 05:30 05:30 WBC 8.1 Hgb 14.9 Hct 43.4 Plt Count 207 Sodium 138 Potassium 3.9 Chloride 104 Carbon Dioxide 27 BUN 18 Creatinine 1.05 Glucose 118 H Calcium 9.4 Consult Discharge Plan - Plan Referrals: Eva Hannon MD [Partnered Physician] -
[2018-04-27] MEDS: hydroCHLOROthiazide 25 MG TABLET PO SCH (09:36)
[2018-04-27] MEDS: Diltiazem CD (24hr) 120 MG CAPSULE PO SCH (09:36)
[2018-04-27] MEDS: Aspirin 81 MG TAB.CHEW PO SCH (09:36)
[2018-04-27] MEDS: Isosorbide MONOnitrate (24 HR) 60 MG TAB.ER.24H PO SCH (09:36)
--- NOTE | 2018-04-27 10:07 | Internal Med Progress Note ---
Hospitalist Progress Note - Encounter Date of Encounter: 04/27/18 Time of Encounter: 10:07 - Subjective Interval History: Patient seen and examined at bedside. Currently denies any CP or SOB, advised patient to report to nursing any CP. Patient is waiting for scheduled open heart surgery on Wednesday Holding Plavix - Exam Vitals: Temp Pulse Resp BP Pulse Ox 97.9 F 58 18 127/80 96 04/27/18 06:55 04/27/18 06:55 04/27/18 06:55 04/27/18 06:55 04/27/18 06:55 Exam: PHYSICAL EXAMINATION: GENERAL APPEARANCE: The patient is alert, oriented and in no acute distress. HEENT: Head is normocephalic. The sinuses are nontender. Pupils are equal and reactive. The nares are patent. Oropharynx clear without lesions. NECK: Supple without lymphadenopathy. HEART: Regular rate and rhythm. LUNGS: No crackles or wheezes are heard. ABDOMEN: Soft, nontender, nondistended with good bowel sounds heard. Inguinal area is normal. EXTREMITIES: Without cyanosis, clubbing or edema. NEUROLOGICAL: Gross nonfocal. SKIN: Warm and dry without any rash. - Assessment and Plan (1) Chest pain, rule out acute myocardial infarction Current Visit: Yes Status: Acute Assessment and Plan: 57-year-old male with past medical history of CAD with stents, hypertension, hyperlipidemia presented with acute onset of left-sided chest pain. Troponin was negative 3, EKG no acute ST-T change, symptoms of suspicious for unstable angina, patient was placed on Nitrol drip with relief of chest pain. - Patient had extensive CAD history with several stents placement. Last C in 2013 with stent in LAD, last stress test in 2015 negative for ischemia. - Repeat echocardiogram 04/23 revealed ejection fraction 55%, mild AR. - Cardiology consulted [facility] completed which revealed severe 3 vessel CAD -CT surgery consulted Plan for CABG Wednesday -Hold Plavix for now- cont ASA metoprolol statin- resume nitro gtt if expereince CP (2) Hypertension Current Visit: Yes Status: Acute Assessment and Plan: BP controlled, continue home medication. (3) Hyperlipidemia Current Visit: Yes Status: Acute Assessment and Plan: Continue home medications. (4) CAD (coronary artery disease) Current Visit: Yes Status: Acute Assessment and Plan: See above. DVT Prophylaxis: heparin sq. - Time Spent with Patient Total time spent is greater than 50% in coordination of care (as documented) at patient's floor/unit and/or counseling patient: Internal Medicine: Result - Labs CBC & Chem 7: 04/27/18 05:30 04/27/18 05:30 Labs: Short CBC 04/27/18 Range/Units 05:30 WBC 8.1 (4.3-11.1) K/mcL Hgb 14.9 (12.9-16.9) g/dL Hct 43.4 (37.5-50.1) % Plt Count 207 (140-400) K/mcL Neutrophils # 5.4 (1.6-8.9) K/mcL BMP 04/27/18 05:30 Sodium 138 Potassium 3.9 Chloride 104 Carbon Dioxide 27 BUN 18 Creatinine 1.05 Glucose 118 H Calcium 9.4 - ABG Interpretation ABG results: PT/INR, D-dimer PT 11.7 Seconds (9.4-12.1) 04/22/18 21:10 Consult Discharge Plan - Plan Referrals: Eva Hannon MD [Partnered Physician] - (2) Hypertension Qualifiers: Hypertension type: essential hypertension Qualified Code(s): I10 - Essential (primary) hypertension (3) Hyperlipidemia Qualifiers: Hyperlipidemia type: pure hypercholesterolemia Qualified Code(s): E78.00 - Pure hypercholesterolemia, unspecified; E78.0 - Pure hypercholesterolemia (4) CAD (coronary artery disease) Qualifiers: Coronary Disease-Associated Artery/Lesion type: [place] artery [place] vs. transplanted heart: [place] heart Associated angina: with unstable angina Qualified Code(s): I25.110 - Atherosclerotic heart disease of [place] coronary artery with unstable angina pectoris
[2018-04-28] MEDS: Nitroglycerin 25 MG/250 ML INFUS..BTL IVC SCH (03:07)
[2018-04-28 04:36] LABS: Basophils % 0.3 %; Eosinophils # 0.4 K/mcL (0.0-0.6); Eosinophils % 4.6 %; Hemoglobin 14.1 g/dL (12.9-16.9); Immature Granulocytes % 0.3 % (0-4); Lymphocytes # 1.7 K/mcL (0.6-4.6); Lymphocytes % 22.5 %; Mean Corpuscular HGB Conc 34.4 g/dL (31.6-35.5); Mean Corpuscular Hemoglobin 30.5 pg (28.0-33.3); Mean Corpuscular Volume 88.7 fL (83.0-100.0); Mean Platelet Volume 10.4 fL (9.4-12.4); Monocytes # 0.4 K/mcL (0.0-1.3); Neutrophils # 5.1 K/mcL (1.6-8.9); Platelet Count 194 K/mcL (140-400); Red Blood Count 4.62 M/mcL (4.19-5.50); Red Cell Distribution Width 13.5 % (11.5-14.5); Segmented Neutrophils % 67.3 %
[2018-04-28 04:58] LABS: BUN/Creatinine Ratio 16 (6-26); Blood Urea Nitrogen 17 mg/dL (6-20); Calcium 9.3 mg/dL (8.6-10.3); Carbon Dioxide 29 mEq/L (23-29); Chloride 104 mEq/L (98-107); Glucose 113 mg/dL (70-105); Osmolality,Calculated 288 (280-300); Potassium 3.9 mEq/L (3.5-5.1); Sodium 138 mEq/L (136-145); eGFR For Non-African Americans > 60 (> 60)
[2018-04-28] MEDS: Pantoprazole 40 MG VIAL IVP SCH (04:59)
[2018-04-28] MEDS: *HR* Heparin 5,000 UNIT/ML VIAL SQ SCH ×2 (04:59→17:20)
--- NOTE | 2018-04-28 08:18 | Cardiothoracic Progress Note ---
Date of Encounter: 04/28/18 Time of Encounter: 08: - Assessment and plan (1) CAD (coronary artery disease) Current Visit: Yes Status: Acute The patient is a 57-year-old hypertensive man with hypercholesterolemia and known CAD. He is admitted to [facility] on Wednesday, 2017 with repeated episodes of substernal chest pain radiating to his neck, shortness breath, dyspnea exertion, lightheadedness, nausea, and vomiting. The pain resolved after he was given sublingual nitroglycerin and started on a nitroglycerin drip. He has had no further episodes of substernal chest pain. He underwent cardiac catheterization today was found to have severe 3 vessel CAD and an LVEF 50%. In particular the patient has a 90% proximal LAD lesion, 90% proximal D1 lesion, an 80% mid LCx lesion (small vessel), a 60% mid RCA lesion, and a 90% proximal PDA lesion. The distal LAD appears to be diffusely diseased and small. Ideally, the patient should undergo CABG; however, the distal LAD and distal LCx may not be bypassable. The STS risk calculator reveals an operative mortality risk 0.42%, deep sternal wound infection risk 0.28%, permanent stroke risk 0.38%, renal failure risk 1.28%, and reoperation risk 2.94%. Although the patient appears to be a low risk patient, he may not be able to be completely revascularized due to the severe, diffuse distal disease. The patient and his are aware of this fact. The patient has been on Plavix for his NICA, and this will be stopped for 4 days preoperatively. Tentatively, the patient is scheduled for CABG on 05/30/2018. The assessment and plan as outlined above was discussed with the patient and/or family members who expressed understanding and agreement. All questions were answered. Qualifiers: Coronary Disease-Associated Artery/Lesion type: [place] artery [place] vs. transplanted heart: [place] heart Associated angina: with unstable angina Qualified Code(s): I25.110 - Atherosclerotic heart disease of [place] coronary artery with unstable angina pectoris - Subjective Interval history: The patient remained stable overnight. He has no complaints of chest pain. Vital Signs, Last 4 Hours Temp Pulse Resp BP Pulse Ox 04/28/18 07:34 94 04/28/18 07:07 98.2 F 65 16 145/91 94 Oxgyen Flow Rate Oxygen Flow Rate (LPM) 2.5 Clinical Data, last 8 Hours Output, Urine Amount 0 Output, Urine Amount 425 Weight 04/26/18 04/27/18 04/28/18 23:59 23:59 23:59 Weight 108 kg 111.2 kg - Physical Examination General: Conversant, No Apparent Distress Neck: No JVD, Normal carotid pulses Cardiac: Reg Rate and Rhythm, Normal S1 and S2, No Murmur Lungs: Normal Breath Sounds, No Wheeze, Rales, Rhonchi Neuro: Alert and responsive, No focal deficits noted Vascular: Normal capillary refill Musculoskeletal: No Chest Wall Tenderness Extremities: No Clubbing, No Cyanosis, No Edema, Normal Pulses - Labs 04/28/18 03:40 04/28/18 03:40 Lab Results, Last 24 hours 04/28/18 04/28/18 03:40 03:40 WBC 7.6 Hgb 14.1 Hct 41.0 Plt Count 194 Sodium 138 Potassium 3.9 Chloride 104 Carbon Dioxide 29 BUN 17 Creatinine 1.04 Glucose 113 H Calcium 9.3 Consult Discharge Plan - Plan Referrals: Eva Hannon MD [Partnered Physician] -
[2018-04-28] MEDS: hydroCHLOROthiazide 25 MG TABLET PO SCH (08:31)
[2018-04-28] MEDS: Aspirin 81 MG TAB.CHEW PO SCH (08:31)
[2018-04-28] MEDS: Diltiazem CD (24hr) 120 MG CAPSULE PO SCH (08:31)
[2018-04-28] MEDS: Isosorbide MONOnitrate (24 HR) 60 MG TAB.ER.24H PO SCH (08:32)
--- NOTE | 2018-04-28 13:24 | Internal Med Progress Note ---
Hospitalist Progress Note - Encounter Date of Encounter: 04/28/18 Time of Encounter: 13:20 - Subjective Interval History: Patient seen and examined at bedside. Currently denies any CP or SOB, advised patient to report to nursing any CP. Patient is waiting for scheduled open heart surgery on Wednesday Holding Plavix - Exam Vitals: Temp Pulse Resp BP Pulse Ox 98.3 F 66 16 146/85 94 04/28/18 11:22 04/28/18 11:22 04/28/18 11:22 04/28/18 11:22 04/28/18 11:22 Exam: PHYSICAL EXAMINATION: GENERAL APPEARANCE: The patient is alert, oriented and in no acute distress. HEENT: Head is normocephalic. The sinuses are nontender. Pupils are equal and reactive. The nares are patent. Oropharynx clear without lesions. NECK: Supple without lymphadenopathy. HEART: Regular rate and rhythm. LUNGS: No crackles or wheezes are heard. ABDOMEN: Soft, nontender, nondistended with good bowel sounds heard. Inguinal area is normal. EXTREMITIES: Without cyanosis, clubbing or edema. NEUROLOGICAL: Gross nonfocal. SKIN: Warm and dry without any rash. - Assessment and Plan (1) Chest pain, rule out acute myocardial infarction Current Visit: Yes Status: Acute Assessment and Plan: 57-year-old male with past medical history of CAD with stents, hypertension, hyperlipidemia presented with acute onset of left-sided chest pain. Troponin was negative 3, EKG no acute ST-T change, symptoms of suspicious for unstable angina, patient was placed on Nitrol drip with relief of chest pain. - Patient had extensive CAD history with several stents placement. Last C in 2013 with stent in LAD, last stress test in 2015 negative for ischemia. - Repeat echocardiogram 04/23 revealed ejection fraction 55%, mild AR. - Cardiology consulted [facility] completed which revealed severe 3 vessel CAD -CT surgery consulted Plan for CABG Wednesday- NPO at midnight -Hold Plavix for now- cont ASA metoprolol statin- resume nitro gtt if expereince CP (2) Hypertension Current Visit: Yes Status: Acute Assessment and Plan: BP controlled, continue home medication. (3) Hyperlipidemia Current Visit: Yes Status: Acute Assessment and Plan: Continue home medications. (4) CAD (coronary artery disease) Current Visit: Yes Status: Acute Assessment and Plan: See above. DVT Prophylaxis: heparin sq. - Time Spent with Patient Total time spent is greater than 50% in coordination of care (as documented) at patient's floor/unit and/or counseling patient: Internal Medicine: Result - Labs CBC & Chem 7: 04/28/18 03:40 04/28/18 03:40 Labs: Short CBC 04/28/18 Range/Units 03:40 WBC 7.6 (4.3-11.1) K/mcL Hgb 14.1 (12.9-16.9) g/dL Hct 41.0 (37.5-50.1) % Plt Count 194 (140-400) K/mcL Neutrophils # 5.1 (1.6-8.9) K/mcL BMP 04/28/18 03:40 Sodium 138 Potassium 3.9 Chloride 104 Carbon Dioxide 29 BUN 17 Creatinine 1.04 Glucose 113 H Calcium 9.3 - ABG Interpretation ABG results: PT/INR, D-dimer PT 11.7 Seconds (9.4-12.1) 04/22/18 21:10 Consult Discharge Plan - Plan Referrals: Eva Hannon MD [Partnered Physician] - (2) Hypertension Qualifiers: Hypertension type: essential hypertension Qualified Code(s): I10 - Essential (primary) hypertension (3) Hyperlipidemia Qualifiers: Hyperlipidemia type: pure hypercholesterolemia Qualified Code(s): E78.00 - Pure hypercholesterolemia, unspecified; E78.0 - Pure hypercholesterolemia (4) CAD (coronary artery disease) Qualifiers: Coronary Disease-Associated Artery/Lesion type: [place] artery [place] vs. transplanted heart: [place] heart Associated angina: with unstable angina Qualified Code(s): I25.110 - Atherosclerotic heart disease of [place] coronary artery with unstable angina pectoris
[2018-04-28] MEDS: Chlorhexidine Rinse 15 ML MOUTHWASH MM SCH (21:05)
[2018-04-29] MEDS ORDERED: Dextrose 50 % in Water (Vial) 30 ML, Sodium Bicarbonate 20 MEQ, Lidocaine 1% 5 ML, Insu... TH ONE ×2 (02:00→07:45)
[2018-04-29] MEDS: Nitroglycerin 25 MG/250 ML INFUS..BTL IVC SCH ×3 (02:24→19:21)
[2018-04-29] MEDS: Chlorhexidine Rinse 15 ML MOUTHWASH MM SCH ×2 (05:51→21:42)
[2018-04-29 06:05] LABS: Basophils % 0.3 %; Eosinophils # 0.3 K/mcL (0.0-0.6); Eosinophils % 3.6 %; Hematocrit 43.4 % (37.5-50.1); Hemoglobin 14.7 g/dL (12.9-16.9); Immature Granulocytes % 0.3 % (0-4); Lymphocytes # 1.8 K/mcL (0.6-4.6); Lymphocytes % 20.9 %; Mean Corpuscular HGB Conc 33.9 g/dL (31.6-35.5); Mean Corpuscular Hemoglobin 30.2 pg (28.0-33.3); Mean Corpuscular Volume 89.1 fL (83.0-100.0); Mean Platelet Volume 10.8 fL (9.4-12.4); Monocytes # 0.6 K/mcL (0.0-1.3); Monocytes % 6.3 %; Platelet Count 215 K/mcL (140-400); Red Blood Count 4.87 M/mcL (4.19-5.50); Red Cell Distribution Width 13.5 % (11.5-14.5); Segmented Neutrophils % 68.6 %
[2018-04-29] MEDS ORDERED: Nitroglycerin 25 MG/250 ML INFUS..BTL IVC ONE (06:38)
[2018-04-29] MEDS ORDERED: NiCARdipine 2.5 MG/10 ML Syringe IVPB ONE (06:38)
[2018-04-29] MEDS ORDERED: Tranexamic Acid 1,000 MG/10 ML VIAL ONE ×2 (06:43→09:54)
[2018-04-29] MEDS ORDERED: *HR* Rocuronium Bromide 50 MG/5 ML VIAL ONE ×2 (06:43→12:32)
[2018-04-29] MEDS ORDERED: Protamine Sulfate 250 MG/25 ML VIAL IVP ONE (06:43)
[2018-04-29] MEDS ORDERED: *HR* PHENYLEPHRINE 1,000 MCG/10 ML SYRINGE IVP ONE (06:43)
[2018-04-29] MEDS ORDERED: *HR* Etomidate 20 MG/10 ML AMPUL IVP ONE (06:43)
[2018-04-29] MEDS ORDERED: Famotidine 20 MG/2 ML VIAL ONE (06:43)
[2018-04-29] MEDS ORDERED: *HR* Midazolam HCl 5 MG/5 ML VIAL IVP ONE ×2 (06:49→12:33)
[2018-04-29] MEDS ORDERED: *HR* FentaNYL (PF) 1,000 MCG/20 ML VIAL ONE (06:49)
[2018-04-29] MEDS ORDERED: CeFAZolin Syr 2,000MG/20 ML 2,000 MG/20 ML SYRINGE IVPB ONE (07:00)
[2018-04-29 07:15] LABS: BUN/Creatinine Ratio 18 (6-26); Blood Urea Nitrogen 19 mg/dL (6-20); Calcium 9.6 mg/dL (8.6-10.3); Carbon Dioxide 25 mEq/L (23-29); Chloride 103 mEq/L (98-107); Glucose 117 mg/dL (70-105); Osmolality,Calculated 289 (280-300); Potassium 3.8 mEq/L (3.5-5.1); Sodium 138 mEq/L (136-145); eGFR For Non-African Americans > 60 (> 60)
[2018-04-29] MEDS: *HR* Heparin 5,000 UNIT/ML VIAL SQ SCH ×2 (07:43→18:14)
[2018-04-29] MEDS: Pantoprazole 40 MG VIAL IVP SCH ×2 (07:43→15:07)
[2018-04-29] MEDS ORDERED: Norepinephrine 4 MG in D5% in Water 250 ML IVC PRN (07:45)
[2018-04-29] MEDS ORDERED: Insulin Human Regular 100 UNIT in 0.9 % Sodium Chloride 100 ML IV PRN (07:45)
[2018-04-29] MEDS ORDERED: Heparin 15,000 UNIT in 0.9 % Sodium Chloride 500 ML IV ONE (07:45)
[2018-04-29] MEDS ORDERED: Dextrose 50 % in Water (Vial) 30 ML, Sodium Bicarbonate 20 MEQ, Potassium Chloride 15 M... TH ONE (07:45)
--- NOTE | 2018-04-29 08:03 | Event Note ---
Date of Encounter: 04/29/18 Time of Encounter: 07:57 Patient has hx of HTN CADHe was admitted with substernal CP which was resolved with nitroglycerine He underwent a LHC and was found to have severe triple vessel CAD,. Cardiothoracic surgery consulted and he is undergo CABG, however he is on Plavix and this was held for 4 days -Early this am he was taken to surgery prior to my arrival- his cariothoracic surgery will assume care post op in ICU.
[2018-04-29 08:54] LABS: ABG Base Excess 1 mEq/L (-2 to 3); ABG Chloride 102 mEq/L (98-107); ABG Glucose 115 mg/dL (60-95); ABG HCO3 28 mEq/L (21-27); ABG Ionized Calcium 1.18 mmol/L (1.15-1.35); ABG Oxygen Saturation 100 % (95-98); ABG PCO2 51 mmHg (35-45); ABG PH 7.34 pH Units (7.32-7.45); ABG PO2 292 mmHg (85-104); ABG TCO2 29 mEq/L (20-26)
[2018-04-29 10:14] LABS: ABG Base Excess -2 mEq/L (-2 to 3); ABG Chloride 106 mEq/L (98-107); ABG Glucose 174 mg/dL (60-95); ABG HCO3 23 mEq/L (21-27); ABG Ionized Calcium 1.02 mmol/L (1.15-1.35); ABG Oxygen Saturation 98 % (95-98); ABG PCO2 38 mmHg (35-45); ABG PH 7.39 pH Units (7.32-7.45); ABG PO2 105 mmHg (85-104); ABG TCO2 24 mEq/L (20-26)
[2018-04-29] MEDS ORDERED: Albumin Human 5% 50.0 GM/1,000 ML VIAL ONE (10:15)
[2018-04-29 10:43] LABS: ABG Base Excess 2 mEq/L (-2 to 3); ABG Chloride 100 mEq/L (98-107); ABG Glucose 231 mg/dL (60-95); ABG HCO3 26 mEq/L (21-27); ABG Ionized Calcium 0.98 mmol/L (1.15-1.35); ABG Oxygen Saturation 100 % (95-98); ABG PCO2 38 mmHg (35-45); ABG PH 7.44 pH Units (7.32-7.45); ABG PO2 387 mmHg (85-104); ABG TCO2 27 mEq/L (20-26)
--- NOTE | 2018-04-29 10:48 | Anesthesia Procedures ---
Date of Encounter: 04/29/18 Time of Encounter: 08:30 Procedures: Anesthesia - Arterial Line Consent obtained: written consent Time out performed: Yes Sedation: Versed (mg): 2 Sedation: Fentanyl (mcg): 100 Supplemental Oxygen via Nasal Cannula (L/min): 2 Local Anesthetic: Lidocaine 1% Amount of Anesthetic used (mls): 1 Size (Gauge): 20 Length (inches): 5 Technique Used: sterile prep, guide wire technique, direct puncture technique Post-Procedure: line taped into place, dry sterile dressing placed Patient tolerated procedure: well, no complications Complications: none Site: Radial L - Central Line Placement Right IJ Consent obtained: written consent Time out performed: Yes Patient placed on monitor/pulse ox: Yes prep: mask, gown, gloves Central line prep: Chlorhexidine scrub Ultrasound used for placement: Yes Technique: Seldinger Lumen Inserted: Introducer Post procedure: sutured in place, good blood return, all ports aspirated, flushed, capped, sterile dressing applied Patient tolerated procedure: well, no complications Complications: none Comments: introducer placed easily, swan floated without arrythmia, wedge approx 55cm
[2018-04-29] MEDS ORDERED: *HR* Phenylephrine 10 MG/ML VIAL IVC ONE (10:52)
[2018-04-29] MEDS ORDERED: *HR* Magnesium Sulfate 2 GM/50 ML PIGGYBACK IVPB ONE (10:52)
[2018-04-29] MEDS ORDERED: Albumin Human 25% 25 GM/100 ML IV.SOLN IV ONE (10:52)
[2018-04-29] MEDS ORDERED: Tranexamic Acid 1,000 MG/10 ML VIAL IVPB ONE (10:52)
[2018-04-29] MEDS ORDERED: Mannitol 25% vial 12.5 GM/50 ML VIAL IVP ONE (10:52)
[2018-04-29] MEDS ORDERED: Lidocaine 2% Syringe 100 MG/5 ML IV ONE (10:52)
[2018-04-29] MEDS ORDERED: *HR* Heparin 10,000 UNIT/10 ML VIAL IV ONE (10:52)
[2018-04-29 11:13] LABS: ABG Base Excess 3 mEq/L (-2 to 3); ABG Chloride 98 mEq/L (98-107); ABG Glucose 227 mg/dL (60-95); ABG HCO3 27 mEq/L (21-27); ABG Ionized Calcium 1.01 mmol/L (1.15-1.35); ABG Oxygen Saturation 100 % (95-98); ABG PCO2 37 mmHg (35-45); ABG PH 7.46 pH Units (7.32-7.45); ABG PO2 403 mmHg (85-104); ABG TCO2 28 mEq/L (20-26)
[2018-04-29 11:29] LABS: ABG Base Excess 0 mEq/L (-2 to 3); ABG Chloride 99 mEq/L (98-107); ABG Glucose 209 mg/dL (60-95); ABG HCO3 26 mEq/L (21-27); ABG Ionized Calcium 1.19 mmol/L (1.15-1.35); ABG Oxygen Saturation 100 % (95-98); ABG PCO2 42 mmHg (35-45); ABG PH 7.39 pH Units (7.32-7.45); ABG PO2 342 mmHg (85-104); ABG TCO2 27 mEq/L (20-26)
[2018-04-29 12:10] LABS: ABG Base Excess 0 mEq/L (-2 to 3); ABG Chloride 102 mEq/L (98-107); ABG Glucose 142 mg/dL (60-95); ABG HCO3 24 mEq/L (21-27); ABG Ionized Calcium 1.37 mmol/L (1.15-1.35); ABG Oxygen Saturation 96 % (95-98); ABG PCO2 36 mmHg (35-45); ABG PH 7.44 pH Units (7.32-7.45); ABG PO2 80 mmHg (85-104); ABG TCO2 25 mEq/L (20-26)
--- NOTE | 2018-04-29 12:39 | Operative Note ---
Date of procedure: 04/29/18 Pre-op diagnosis: CAD Post-op diagnosis: same Procedure: 1. CABG 3 (AGUIAR to LAD, SVG to D1, SVG to PDA) 2. Endoscopic vein harvesting, greater saphenous vein from right lower extremity Implants: None. Complications: None. Anesthesia: GETA Surgeon: Saira Gerber Was there an elementary assistant teacher present: Yes Scrap Shear Operator: Lux Reyes Estimated blood loss (cc): 500 Specimen: None. Condition: stable Disposition: ICU Procedure in Detail: INDICATIONS FOR OPERATION: The patient is a 57 year old hypertensive man with hypercholesterolemia and known CAD who was admitted to [facility] on 04/22/2018. The patient's cardiac history dates back to 2010, at which time he underwent venous catheter intervention and stent placement. It is unclear which coronary artery was stented. The patient had persistent symptoms and underwent repeat intervention 6 weeks after the initial procedure, with placement of 2 additional stents. He subsequently underwent a third cardiac intervention 6 months later and his last cardiac intervention was in November 2013. At that time he underwent PTCA and LAD stent placement. Recently, the patient has complained of exertional substernal chest pressure radiating to his neck, as well as shortness of breath and fatigue. On the night of admission the patient had severe substernal chest pain and associated shortness of breath, dyspnea exertion, lightheadedness, nausea, and vomiting. The patient had repeated episodes at home and was eventually convinced by his to be evaluated at [facility] emergency department. During the evaluation the patient had subsequent episodes of substernal chest pain and was admitted for further cardiac workup. The patient underwent a transthoracic echocardiogram which revealed an LVEF 60% with normal left ventricular chamber size, wall thickness, and function. The cardiac catheterization performed today revealed 3 vessel CAD and it LVEF 50%. In particular, the patient has a 90% proximal LAD lesion with distal diffuse disease in a small vessel, a 90% proximal D1 lesion, a 90% mid LCx lesion ( small vessel), a 60% mid RCA lesion, and a 90% proximal PDA lesion. The patient has been recommended for CABG. FINDINGS AT OPERATION: The aorta was of normal caliber and slightly thickened. The coronary arteries measured proximally 1.5 mm in diameter and had mild to moderate distal disease, particularly the D1 branch and PDA branch. The greater saphenous vein was harvested endoscopically from the right lower extremity from the mid calf to the groin and was of good quality. Total bypass time was 79 minutes, cross- clamp time 47 minutes, intentional hypothermia of 34.8 degrees centigrade. DESCRIPTION OF OPERATION: After obtaining informed operative consent from the patient, he was taken to the operating room where a satisfactory general endotracheal anesthetic was induced. Appropriate monitor lines placed, and the patient's chest, abdomen, and lower extremities were prepped and draped in a sterile fashion. The greater saphenous vein was harvested endoscopically from the right lower extremity from the mid calf to the groin. The vein was removed, distended, and found to be of good quality. The subcutaneous tissue and skin edges were reapproximated running Vicryl sutures. Simultaneously, a standard median sternotomy incision was made and the sternum divided. The AGUIAR was taken down from its bed and side branches divided between hemoclips. The sternum was and the pericardium opened and reflected laterally. The patient was prepared for cannulation by placing pursestring sutures the distal ascending aorta, mid-ascending aorta, and right atrial appendage. The patient was heparinized and when the ACT was greater than 200 seconds, the distal ascending aorta was cannulated followed by placement of a dual stage venous cannula through the right atrial appendage and into the inferior vena cava. A stab-in antegrade metabolic cannula was placed in the mid-ascending aorta. The patient was placed on bypass and the temperature allowed to drift to 34.8 degrees centigrade. The distal targets were identified and the aorta was crossclamped. The patient received 900 mL of cold antegrade crystalloid cardioplegia through the aortic root. The patient's heart obtained diastolic arrest. The PDA was opened the [place] blade and the vein was anastomosed in an end-to- side fashion using running 7-0 Prolene suture. The anastomosis found to be hemostatic. The distal LCx and OM branches were examined and found to be too small for bypass. The patient received a notice of cold antegrade crystalloid cartilage up to the aortic root. The D1 branch was opened distally due to proximal calcification. The vein was anastomosed in an end-to-side fashion using running 7-0 Prolene suture. The anastomosis found to be hemostatic and the patient received a final dose of cold antegrade crystalloid cartilage up to the aortic root. The LAD was opened the [place] blade and the AGUIAR was anastomosed in an end-to-side fashion to the LAD using running 7-0 Prolene suture. The anastomosis found to be hemostatic and the mammary pedicle was tacked to the epicardium using interrupted 5-0 silk suture. Rewarming was begun during this anastomosis. Aortic cross-clamp was released and the heart distended. The veins were measured and cut appropriate lengths. A partial occluding clamp was placed across the mid-ascending aorta and the antegrade metabolic cannula was removed. An additional aortotomy site was then made 11 blade and both sites were enlarged with 4 mm punch. The veins were anastomosed in an end-to-side fashion to the aorta using running 5-0 Prolene suture. The vein grafts were occluded with bulldog clamps and de-aired the 25-gauge needle prior to removing the partial occluding clamp. The proximal distal anastomoses were found to be hemostatic. Two right ventricular temporary pacing lesion placed, and 3 chest tubes were placed, 2 in the mediastinum and one into the left pleural space. During rewarming, the patient's heart regained normal sinus rhythm spontaneously. When the patient's systemic temperature reached 36 degrees centigrade he was ventilated and received volume. He was weaned from bypass required no inotropic support. Protamine was administered and the aortic and venous cannulae were removed. The pursestring sutures were secured and the venous cannulation site was reinforced with a running 4-0 Prolene suture. The pericardium was loosely approximated in midline using interrupted 0 silk suture. The sternum was reapproximated using double wires. The pectoralis major fascia, rectus abdominis fascia, subcutaneous tissue, and skin edges were reapproximated running Vicryl sutures. A negative pressure sterile dressing was applied to the sternotomy incision. The patient was transferred to the ICU in satisfactory postoperative condition. There were no intraoperative complications, and the instrument, needle, and sponge count were corrected and of operation.
[2018-04-29] MEDS ORDERED: Potassium Chloride 40 MEQ/200 ML BAG IVPB PRN (12:50)
[2018-04-29] MEDS ORDERED: Acetaminophen 650 MG RECTAL SUPP RC PRN (12:50)
[2018-04-29] MEDS ORDERED: Calcium Chloride 1,000 MG in 0.9 % Sodium Chloride 100 ML IVPB PRN (12:50)
[2018-04-29] MEDS ORDERED: Insulin Regular, Human 100 UNIT/ML IV PRN (12:50)
[2018-04-29] MEDS ORDERED: Acetaminophen 325 MG TABLET PO PRN (12:50)
[2018-04-29] MEDS ORDERED: Insulin Human Regular 100 UNIT in 0.9 % Sodium Chloride 100 ML IVC SCH (13:00)
[2018-04-29] MEDS ORDERED: 0.9 % Sodium Chloride w KCl 20 MEQ/1,000 ML MLS IVC SCH (13:00)
[2018-04-29 13:13] LABS: ABG Base Excess 5 mEq/L (-2 to 3); ABG HCO3 30 mEq/L (21-27); ABG Oxygen Saturation 99 % (95-98); ABG PCO2 44 mmHg (35-45); ABG PH 7.43 pH Units (7.32-7.45); ABG PO2 139 mmHg (85-104); ABG TCO2 31 mEq/L (20-26); Blood Gas Modality ASSIST CONTROL; Blood Gas PEEP 5 cm H2O; Blood Gas Respiration Rate 10; Blood Gas VT 600 cc
[2018-04-29 13:16] LABS: Basophils % 0.3 %; Eosinophils # 0.2 K/mcL (0.0-0.6); Eosinophils % 1.5 %; Hematocrit 33.7 % (37.5-50.1); Immature Granulocytes % 0.7 % (0-4); Lymphocytes # 1.9 K/mcL (0.6-4.6); Lymphocytes % 12.4 %; Mean Corpuscular HGB Conc 35.3 g/dL (31.6-35.5); Mean Corpuscular Hemoglobin 30.9 pg (28.0-33.3); Mean Corpuscular Volume 87.5 fL (83.0-100.0); Mean Platelet Volume 9.6 fL (9.4-12.4); Monocytes # 0.7 K/mcL (0.0-1.3); Monocytes % 4.7 %; Platelet Count 133 K/mcL (140-400); Red Blood Count 3.85 M/mcL (4.19-5.50); Red Cell Distribution Width 13.2 % (11.5-14.5); Segmented Neutrophils % 80.4 %
[2018-04-29 13:18] LABS: Hemoglobin 11.9 g/dL (12.9-16.9)
[2018-04-29 13:24] LABS: INR 1.5; Prothrombin Time 16.5 Seconds (9.4-12.1)
[2018-04-29 13:27] LABS: Activated Partial Thrombo Time 31.7 Seconds (26.0-36.0)
[2018-04-29 13:33] LABS: BUN/Creatinine Ratio 17 (6-26); Blood Urea Nitrogen 15 mg/dL (6-20); Calcium 8.9 mg/dL (8.6-10.3); Carbon Dioxide 29 mEq/L (23-29); Chloride 105 mEq/L (98-107); Glucose 100 mg/dL (70-105); Magnesium 2.2 mg/dL (1.6-2.6); Osmolality,Calculated 287 (280-300); Potassium 3.3 mEq/L (3.5-5.1); Sodium 138 mEq/L (136-145); eGFR For Non-African Americans > 60 (> 60)
[2018-04-29] MEDS: *HR* FentaNYL (PF) 100 MCG/2 ML VIAL IVP PRN ×3 (15:45→21:42)
[2018-04-29] MEDS: Diltiazem CD (24hr) 120 MG CAPSULE PO SCH (15:49)
[2018-04-29] MEDS: Aspirin 81 MG TAB.CHEW PO SCH (15:49)
[2018-04-29] MEDS: Isosorbide MONOnitrate (24 HR) 60 MG TAB.ER.24H PO SCH (15:49)
[2018-04-29 16:34] LABS: ABG Base Excess 3 mEq/L (-2 to 3); ABG HCO3 27 mEq/L (21-27); ABG Oxygen Saturation 98 % (95-98); ABG PCO2 38 mmHg (35-45); ABG PH 7.46 pH Units (7.32-7.45); ABG PO2 91 mmHg (85-104); ABG TCO2 28 mEq/L (20-26); Blood Gas Modality ASSIST CONTROL; Blood Gas PEEP 5 cm H2O; Blood Gas Respiration Rate 10; Blood Gas VT 600 cc
[2018-04-29] MEDS: Ketorolac 15 MG/ML VIAL IVP SCH ×2 (18:13→23:41)
[2018-04-29] MEDS: Metoclopramide 10 MG/2 ML VIAL IVP SCH ×2 (18:13→23:41)
[2018-04-29 18:23] LABS: Magnesium 2.2 mg/dL (1.6-2.6); Potassium 4.5 mEq/L (3.5-5.1)
[2018-04-29] MEDS: niCARdipine 40 MG/200 ML MLS IVC SCH ×2 (19:19→19:22)
[2018-04-29] MEDS: Norepinephrine 4 MG in D5% in Water 250 ML IVC SCH (19:20)
[2018-04-29] MEDS: *HR* OxyCODONE/APAP 5/325 TABLET PO PRN (19:32)
[2018-04-29 21:26] LABS: ABG Base Excess 2 mEq/L (-2 to 3); ABG HCO3 26 mEq/L (21-27); ABG Oxygen Saturation 96 % (95-98); ABG PCO2 39 mmHg (35-45); ABG PH 7.43 pH Units (7.32-7.45); ABG PO2 80 mmHg (85-104); ABG TCO2 27 mEq/L (20-26); Blood Gas Modality CPAP/PS; Blood Gas PEEP 5 cm H2O; Blood Gas Pressure Support 5 cm H2O
[2018-04-29 22:44] LABS: ABG Base Excess 2 mEq/L (-2 to 3); ABG HCO3 27 mEq/L (21-27); ABG Oxygen Saturation 96 % (95-98); ABG PCO2 41 mmHg (35-45); ABG PH 7.42 pH Units (7.32-7.45); ABG PO2 82 mmHg (85-104); ABG TCO2 28 mEq/L (20-26)
[2018-04-30] MEDS: Nitroglycerin 25 MG/250 ML INFUS..BTL IVC SCH ×3 (00:25→12:26)
[2018-04-30] MEDS: *HR* FentaNYL (PF) 100 MCG/2 ML VIAL IVP PRN ×2 (02:05→04:25)
[2018-04-30] MEDS: *HR* OxyCODONE/APAP 5/325 TABLET PO PRN ×5 (04:02→20:19)
[2018-04-30] MEDS: niCARdipine 40 MG/200 ML MLS IVC SCH ×2 (04:02→12:26)
[2018-04-30 04:25] LABS: Basophils % 0.1 %; Eosinophils % 0.1 %; Hematocrit 34.1 % (37.5-50.1); Hemoglobin 11.9 g/dL (12.9-16.9); Immature Granulocytes % 0.7 % (0-4); Lymphocytes # 1.1 K/mcL (0.6-4.6); Lymphocytes % 7.4 %; Mean Corpuscular HGB Conc 34.9 g/dL (31.6-35.5); Mean Corpuscular Hemoglobin 31.1 pg (28.0-33.3); Mean Platelet Volume 10.3 fL (9.4-12.4); Monocytes # 1.2 K/mcL (0.0-1.3); Monocytes % 7.8 %; Neutrophils # 12.9 K/mcL (1.6-8.9); Platelet Count 201 K/mcL (140-400); Red Blood Count 3.83 M/mcL (4.19-5.50); Red Cell Distribution Width 13.9 % (11.5-14.5); Segmented Neutrophils % 83.9 %
[2018-04-30 04:27] LABS: INR 1.3
[2018-04-30 04:30] LABS: Activated Partial Thrombo Time 30.4 Seconds (26.0-36.0)
[2018-04-30 04:44] LABS: BUN/Creatinine Ratio 17 (6-26); Blood Urea Nitrogen 20 mg/dL (6-20); Calcium 8.4 mg/dL (8.6-10.3); Carbon Dioxide 24 mEq/L (23-29); Chloride 104 mEq/L (98-107); Glucose 184 mg/dL (70-105); Osmolality,Calculated 289 (280-300); Potassium 4.5 mEq/L (3.5-5.1); Sodium 136 mEq/L (136-145); eGFR For Non-African Americans > 60 (> 60)
[2018-04-30 05:12] LABS: Magnesium 2.4 mg/dL (1.6-2.6)
[2018-04-30] MEDS: Ketorolac 15 MG/ML VIAL IVP SCH ×3 (06:20→18:06)
[2018-04-30] MEDS: *HR* Heparin 5,000 UNIT/ML VIAL SQ SCH ×2 (06:20→18:06)
[2018-04-30] MEDS: Metoclopramide 10 MG/2 ML VIAL IVP SCH ×3 (06:21→18:06)
[2018-04-30] MEDS ORDERED: Furosemide 20 MG/2 ML VIAL IVP SCH (09:00)
[2018-04-30] MEDS ORDERED: Aspirin Enteric Coated 81 MG Tablet PO SCH (09:00)
--- NOTE | 2018-04-30 09:08 | Cardiothoracic Progress Note ---
Date of Encounter: 04/30/18 Time of Encounter: 09:06 - Assessment and plan (1) CAD (coronary artery disease) Current Visit: Yes Status: Acute The patient is recovering well from his CABG3. He is currently extubated and breathing comfortably. The arterial line, [place] catheter, and [place] catheter will be removed. He will be transferred to the stepdown unit when a bed is available. The assessment and plan as outlined above was discussed with the patient and/or family members who expressed understanding and agreement. All questions were answered. Qualifiers: Coronary Disease-Associated Artery/Lesion type: [place] artery [place] vs. transplanted heart: [place] heart Associated angina: with unstable angina Qualified Code(s): I25.110 - Atherosclerotic heart disease of [place] coronary artery with unstable angina pectoris - Subjective Procedure(s) Performed: POD#1 S/P CABG3 Interval history: The patient remained hemodynamically stable overnight. He is extubated and breathing comfortably. He has been able to sit in a chair without difficulty. He has no complaints. Vital Signs, Last 4 Hours Temp Pulse Resp BP Pulse Ox 04/30/18 08:00 89 18 118/63 96 04/30/18 07:29 17 97 04/30/18 07:24 81 04/30/18 07:00 98.9 F 87 16 108/61 95 04/30/18 06:00 99.2 F 84 18 107/64 96 Oxgyen Flow Rate Oxygen Flow Rate (LPM) 2.5 Clinical Data, last 8 Hours Output, Chest Tube Drainage 2 Amount [Mediastinal #1] Output, Chest Tube Drainage 6 Amount [Mediastinal #1] Output, Chest Tube Drainage 8 Amount [Mediastinal #1] Output, Chest Tube Drainage 0 Amount [Mediastinal #1] Output, Chest Tube Drainage 27 Amount [Mediastinal #1] Output, Chest Tube Drainage 5 Amount [Mediastinal #1] Output, Chest Tube Drainage 8 Amount [Mediastinal #1] Output, Chest Tube Drainage 2 Amount [Mediastinal #2] Output, Chest Tube Drainage 0 Amount [Mediastinal #2] Output, Chest Tube Drainage 0 Amount [Mediastinal #2] Output, Chest Tube Drainage 0 Amount [Mediastinal #2] Output, Chest Tube Drainage 87 Amount [Mediastinal #2] Output, Chest Tube Drainage 0 Amount [Mediastinal #2] Output, Chest Tube Drainage 12 Amount [Mediastinal #2] Output, Urine Amount 60 Weight 04/28/18 04/29/18 04/30/18 23:59 23:59 23:59 Weight 112 kg 112.8 kg - Physical Examination General: Conversant, No Apparent Distress Neck: No JVD, Normal carotid pulses Cardiac: Reg Rate and Rhythm, Normal S1 and S2, No Murmur Incision: No signs of infection, Dry/intact dressing Sternum: Stable Chest tubes: Minimal drainage, Other (No air leak) Lungs: Normal Breath Sounds, No Wheeze, Rales, Rhonchi Neuro: Alert and responsive, No focal deficits noted Vascular: Normal capillary refill Extremities: No Clubbing, No Cyanosis, No Edema, Normal Pulses - Labs 04/30/18 04:00 04/30/18 04:15 Lab Results, Last 24 hours 04/29/18 04/29/18 04/29/18 13:08 13:08 13:08 WBC 14.9 H D Hgb 11.9 L D Hct 33.7 L Plt Count 133 L INR 1.5 APTT 31.7 Sodium 138 Potassium 3.3 L Chloride 105 Carbon Dioxide 29 BUN 15 Creatinine 0.90 Glucose 100 Calcium 8.9 Magnesium 2.2 04/29/18 04/30/18 04/30/18 17:42 04:00 04:15 WBC 15.4 H Hgb 11.9 L Hct 34.1 L Plt Count 201 D INR APTT Sodium 136 Potassium 4.5 D 4.5 Chloride 104 Carbon Dioxide 24 BUN 20 Creatinine 1.17 Glucose 184 H Calcium 8.4 L Magnesium 2.2 2.4 04/30/18 04:15 WBC Hgb Hct Plt Count INR 1.3 APTT 30.4 Sodium Potassium Chloride Carbon Dioxide BUN Creatinine Glucose Calcium Magnesium - Imaging Chest Xray: image reviewed (No pneumothorax. Minimal atelectasis/infiltrates.) - VTE Documentation of Mechanical Device: Graduated compression elastic hosiery Consult Discharge Plan - Plan Referrals: Eva Hannon MD [Partnered Physician] -
[2018-04-30] MEDS: Pantoprazole 40 MG VIAL IVP SCH (09:45)
[2018-04-30] MEDS: Chlorhexidine Rinse 15 ML MOUTHWASH MM SCH ×2 (09:45→20:19)
[2018-04-30] MEDS: Diltiazem CD (24hr) 120 MG CAPSULE PO SCH (09:45)
[2018-04-30] MEDS: Isosorbide MONOnitrate (24 HR) 60 MG TAB.ER.24H PO SCH (12:26)
[2018-04-30] MEDS: Norepinephrine 4 MG in D5% in Water 250 ML IVC SCH (14:21)
[2018-04-30] MEDS ORDERED: Ondansetron 4 MG/2 ML VIAL IVP PRN (14:23)
[2018-04-30] MEDS ORDERED: Acetaminophen 325 MG TABLET PO PRN (14:23)
[2018-04-30] MEDS ORDERED: D5% in Water 1,000 ML IVC PRN (14:23)
[2018-04-30] MEDS ORDERED: Dextrose Gel 15 GM/37.5 ML TUBE PO PRN ×2 (14:23)
[2018-04-30] MEDS ORDERED: *HR* Dextrose 50 % in Water (Syg) 50 ML SYRINGE IVP PRN (14:23)
[2018-04-30] MEDS ORDERED: Insulin Regular, Human 100 UNIT/ML IV PRN (14:23)
[2018-04-30] MEDS ORDERED: Naloxone 0.4 MG/ML INJ IVP PRN (14:23)
[2018-04-30] MEDS ORDERED: Insulin Human Regular 100 UNIT in 0.9 % Sodium Chloride 100 ML IVC SCH (14:23)
[2018-04-30] MEDS ORDERED: Nitroglycerin 0.4 MG TAB.SUBL SL PRN (14:23)
[2018-04-30] MEDS: Insulin LISPRO 300 UNITS/3 ML VIAL SQ SCH (17:50)
[2018-04-30] MEDS: Furosemide 20 MG/2 ML VIAL IVP SCH (20:18)
[2018-05-01] MEDS: Insulin LISPRO 300 UNITS/3 ML VIAL SQ SCH ×5 (00:19→20:58)
[2018-05-01] MEDS: Ketorolac 15 MG/ML VIAL IVP SCH ×4 (00:24→17:17)
[2018-05-01] MEDS: *HR* OxyCODONE/APAP 5/325 TABLET PO PRN ×5 (00:25→17:52)
[2018-05-01] MEDS: Metoclopramide 10 MG/2 ML VIAL IVP SCH ×4 (00:25→17:17)
[2018-05-01] MEDS: *HR* Heparin 5,000 UNIT/ML VIAL SQ SCH ×2 (05:26→17:18)
[2018-05-01 05:40] LABS: Basophils % 0.1 %; Eosinophils # 0.1 K/mcL (0.0-0.6); Eosinophils % 1.4 %; Hematocrit 29.5 % (37.5-50.1); Hemoglobin 9.9 g/dL (12.9-16.9); Immature Platelets 4.4 % (1.1-6.1); Lymphocytes # 1.4 K/mcL (0.6-4.6); Lymphocytes % 13.8 %; Mean Corpuscular HGB Conc 33.6 g/dL (31.6-35.5); Mean Corpuscular Hemoglobin 30.9 pg (28.0-33.3); Mean Corpuscular Volume 92.2 fL (83.0-100.0); Mean Platelet Volume 10.3 fL (9.4-12.4); Monocytes # 0.7 K/mcL (0.0-1.3); Monocytes % 6.6 %; Neutrophils # 7.9 K/mcL (1.6-8.9); Platelet Count 156 K/mcL (140-400); Segmented Neutrophils % 77.1 %
[2018-05-01 06:02] LABS: BUN/Creatinine Ratio 22 (6-26); Blood Urea Nitrogen 24 mg/dL (6-20); Calcium 8.4 mg/dL (8.6-10.3); Carbon Dioxide 29 mEq/L (23-29); Chloride 103 mEq/L (98-107); Glucose 141 mg/dL (70-105); Osmolality,Calculated 292 (280-300); Potassium 3.9 mEq/L (3.5-5.1); Sodium 138 mEq/L (136-145); eGFR For Non-African Americans > 60 (> 60)
[2018-05-01] MEDS: Pantoprazole 40 MG VIAL IVP SCH (08:01)
[2018-05-01] MEDS: Aspirin Enteric Coated 81 MG Tablet PO SCH (08:01)
[2018-05-01] MEDS: Chlorhexidine Rinse 15 ML MOUTHWASH MM SCH ×2 (08:01→20:58)
[2018-05-01] MEDS: Furosemide 20 MG/2 ML VIAL IVP SCH ×2 (08:01→20:58)
--- NOTE | 2018-05-01 09:23 | Cardiothoracic Progress Note ---
Date of Encounter: 05/01/18 Time of Encounter: 08:15 - Assessment and plan (1) CAD (coronary artery disease) Current Visit: Yes Status: Acute The patient is recovering well from his CABG3. The chest tubes were removed. The patient will begin ambulating in the hallways later today. The assessment and plan as outlined above was discussed with the patient and/or family members who expressed understanding and agreement. All questions were answered. Qualifiers: Coronary Disease-Associated Artery/Lesion type: [place] artery [place] vs. transplanted heart: [place] heart Associated angina: with unstable angina Qualified Code(s): I25.110 - Atherosclerotic heart disease of [place] coronary artery with unstable angina pectoris - Subjective Procedure(s) Performed: POD#2 S/P CABG3 Interval history: The patient remained hemodynamically stable overnight. He has been able to sit in a chair without difficulty. He has no complaints. Vital Signs, Last 4 Hours Temp Pulse Resp BP Pulse Ox 05/01/18 07:07 98.3 F 85 19 109/75 93 Oxgyen Flow Rate Oxygen Flow Rate (LPM) 2 Clinical Data, last 8 Hours Output, Chest Tube Drainage 30 Amount [Mediastinal #1] Output, Chest Tube Drainage 40 Amount [Mediastinal #2] Output, Urine Amount 250 Output, Urine Amount 250 Weight 04/29/18 04/30/18 05/01/18 23:59 23:59 23:59 Weight 112 kg 108.4 kg 108.1 kg - Physical Examination General: Conversant, No Apparent Distress Neck: No JVD, Normal carotid pulses Cardiac: Reg Rate and Rhythm, Normal S1 and S2, No Murmur Incision: No signs of infection, Dry/intact dressing Sternum: Stable Chest tubes: Minimal drainage, Other (No air leak) Lungs: Normal Breath Sounds, No Wheeze, Rales, Rhonchi Neuro: Alert and responsive, No focal deficits noted Vascular: Normal capillary refill Extremities: No Clubbing, No Cyanosis, No Edema - Labs 05/01/18 04:00 05/01/18 05:15 Lab Results, Last 24 hours 05/01/18 05/01/18 04:00 05:15 WBC 10.2 Hgb 9.9 L D Hct 29.5 L Plt Count 156 Sodium 138 Potassium 3.9 Chloride 103 Carbon Dioxide 29 BUN 24 H Creatinine 1.11 Glucose 141 H Calcium 8.4 L - VTE Documentation of Mechanical Device: Graduated compression elastic hosiery Consult Discharge Plan - Plan Referrals: Eva Hannon MD [Partnered Physician] -
--- NOTE | 2018-05-01 18:45 | Event Note ---
Date of Encounter: 05/01/18 Time of Encounter: 00:00 Hospitalist service will sign off. Please call if any assistance is needed.
[2018-05-02] MEDS: Metoclopramide 10 MG/2 ML VIAL IVP SCH ×4 (03:01→17:20)
[2018-05-02] MEDS: *HR* OxyCODONE/APAP 5/325 TABLET PO PRN ×3 (03:01→21:21)
[2018-05-02] MEDS: Ketorolac 15 MG/ML VIAL IVP SCH ×5 (03:01→23:31)
[2018-05-02] MEDS: *HR* Heparin 5,000 UNIT/ML VIAL SQ SCH ×2 (06:22→17:19)
[2018-05-02] MEDS: Aspirin Enteric Coated 81 MG Tablet PO SCH (08:02)
[2018-05-02] MEDS: Chlorhexidine Rinse 15 ML MOUTHWASH MM SCH ×2 (08:02→21:17)
[2018-05-02] MEDS: Insulin LISPRO 300 UNITS/3 ML VIAL SQ SCH ×4 (08:03→21:15)
[2018-05-02] MEDS: Furosemide 20 MG/2 ML VIAL IVP SCH (08:03)
[2018-05-02] MEDS: Pantoprazole 40 MG VIAL IVP SCH (08:03)
--- NOTE | 2018-05-02 09:01 | Cardiothoracic Progress Note ---
Date of Encounter: 05/02/18 Time of Encounter: 08:30 - Assessment and plan (1) CAD (coronary artery disease) Current Visit: Yes Status: Acute The patient is recovering well from his CABG3. He began ambulating in the hallways yesterday without difficulty. The assessment and plan as outlined above was discussed with the patient and/or family members who expressed understanding and agreement. All questions were answered. Qualifiers: Coronary Disease-Associated Artery/Lesion type: [place] artery [place] vs. transplanted heart: [place] heart Associated angina: with unstable angina Qualified Code(s): I25.110 - Atherosclerotic heart disease of [place] coronary artery with unstable angina pectoris - Subjective Procedure(s) Performed: POD#3 S/P CABG3 Interval history: The patient remained hemodynamically stable overnight. He has been able to ambulate in the hallways without difficulty. He has no complaints. Vital Signs, Last 4 Hours Temp Pulse Resp BP Pulse Ox 05/02/18 07:36 98.3 F 90 16 119/79 96 05/02/18 07:16 16 95 05/02/18 07:00 84 Oxgyen Flow Rate Oxygen Flow Rate (LPM) 2 Clinical Data, last 8 Hours Output, Urine Amount 500 Weight 04/30/18 05/01/18 05/02/18 23:59 23:59 23:59 Weight 108.4 kg 108.1 kg - Physical Examination General: Conversant, No Apparent Distress Neck: No JVD, Normal carotid pulses Incision: No signs of infection, Dry/intact dressing Pacing Wires: In place Lungs: Normal Breath Sounds, No Wheeze, Rales, Rhonchi Neuro: Alert and responsive, No focal deficits noted Vascular: Normal capillary refill Extremities: No Clubbing, No Cyanosis, No Edema - Labs 05/01/18 04:00 05/01/18 05:15 - VTE Documentation of Mechanical Device: Graduated compression elastic hosiery Consult Discharge Plan - Plan
--- NOTE | 2018-05-02 10:34 | Electrocardiograph Report ---
[address] [address] Test Date: 2018-04-29 Pat Name: Zeke Turcios Department: 109 Room: 2N04 Gender: M Textile Machine Operator: RADHA : [id number] Requested By: Beatriz Gerber Order Number: [id number] Reading MD: Geremias Cunha Measurements Intervals [place] Rate: 85 P: 20 MT: 189 QRS: -7 QRSD: 120 T: -4 QT: 371 QTc: 413 Interpretive Statements SINUS RHYTHM Electronically Signed On 05-02-2018 10:32:45 EDT by Geremias Cunha
[2018-05-03] MEDS: *HR* OxyCODONE/APAP 5/325 TABLET PO PRN ×2 (04:13→08:44)
[2018-05-03] MEDS: *HR* Heparin 5,000 UNIT/ML VIAL SQ SCH (05:47)
[2018-05-03] MEDS: Ketorolac 15 MG/ML VIAL IVP SCH (05:47)
[2018-05-03 06:46] VITALS: BP 108/74
[2018-05-03] MEDS: Insulin LISPRO 300 UNITS/3 ML VIAL SQ SCH (07:30)
[2018-05-03] MEDS: Chlorhexidine Rinse 15 ML MOUTHWASH MM SCH (08:44)
[2018-05-03] MEDS: Aspirin Enteric Coated 81 MG Tablet PO SCH (08:44)
--- NOTE | 2018-05-03 09:20 | Discharge Summary ---
Date of Encounter: 05/03/18 Time of Encounter: 09:20 - Discharge Diagnosis (1) CAD (coronary artery disease) Priority: Primary Status: Acute Qualifiers: Coronary Disease-Associated Artery/Lesion type: [place] artery [place] vs. transplanted heart: [place] heart Associated angina: with unstable angina Qualified Code(s): I25.110 - Atherosclerotic heart disease of [place] coronary artery with unstable angina pectoris - Hospital Course Hospital course: Mr. Turcios is a 57 year old hypertensive man with hypercholesterolemia and known CAD who was admitted to [facility] on 04/22/2018. The patient's cardiac history dates back to 2010, at which time he underwent venous catheter intervention and stent placement. It is unclear which coronary artery was stented. The patient had persistent symptoms and underwent repeat intervention 6 weeks after the initial procedure, with placement of 2 additional stents. He subsequently underwent a third cardiac intervention 6 months later and his last cardiac intervention was in November 2013. At that time he underwent PTCA and LAD stent placement. Recently, the patient has complained of exertional substernal chest pressure radiating to his neck, as well as shortness of breath and fatigue. On the night of admission the patient had severe substernal chest pain and associated shortness of breath, dyspnea exertion, lightheadedness, nausea, and vomiting. The patient had repeated episodes at home and was eventually convinced by his to be evaluated at [facility] emergency department. During the evaluation the patient had subsequent episodes of substernal chest pain and was admitted for further cardiac workup. The patient underwent a transthoracic echocardiogram which revealed an LVEF 60% with normal left ventricular chamber size, wall thickness, and function. The cardiac catheterization performed today revealed 3 vessel CAD and it LVEF 50%. In particular, the patient has a 90% proximal LAD lesion with distal diffuse disease in a small vessel, a 90% proximal D1 lesion, a 90% mid LCx lesion ( small vessel), a 60% mid RCA lesion, and a 90% proximal PDA lesion. The patient has been recommended for CABG. The Plavix was held for 4 days prior to CABG. The patient underwent CABG 3 on 04/29/2018. His postoperative course was uncomplicated. He was transferred to the stepdown unit on POD #1. He was ambulating without complaints of substernal chest pain or shortness of breath. He was discharged home on POD #4. - Time Spent with Patient Total time spent providing and/or coordinating discharge services: - Discharge Medications Prescriptions: OxyCODONE/APAP 5/325 [Percocet 5/325 MG] 1 each PO Q4HR PRN 7 Days #42 tablet PRN Reason: Severe Pain Home Medications: Atorvastatin [Lipitor] 40 mg PO HS 04/22/18 [History] Clopidogrel [Plavix] 75 mg PO DAILY 04/22/18 [History] Hydrochlorothiazide [Microzide] 12.5 mg PO DAILY 04/22/18 [History] Metoprolol [Lopressor] 25 mg PO BID 04/22/18 [History] dilTIAZem HCl [Diltiazem 24Hr Cd] 120 mg PO DAILY 04/22/18 [History] Aspirin Enteric Coated [Aspirin EC] 81 mg PO DAILY tablet. 05/03/18 [Rx] Nitroglycerin 0.4 mg SL Q5MIN PRN tab.subl 05/03/18 [Rx] OxyCODONE/APAP 5/325 [Percocet 5/325 MG] 1 each PO Q4HR PRN 7 Days #42 tablet [Rx] Allergies/Adverse Reactions: 3 Allergy/AdvReac Type Severity Reaction Status Date / Time No Known Allergies Allergy Verified 04/22/18 21:47 Date of admission: 04/28/18 15:05 Primary care physician: Jackie Brooks DO Consults: 04/29/18 12:50 Consult to Cardiac Rehabilitation-Phase1 [CONS] Routine Comment: Reason for Consult: Post open heart Call Completed: Yes Procedure(s) Performed: 1. Cardiac catheterization performed 04/25/2018. 2. CABG 3 (AGUIAR to LAD, SVG to D1, SVG to PDA) performed 04/29/2018. 3. Endoscopic vein harvesting, greater saphenous vein from right lower extremity performed 04/29/2018. Discharging clinician: Saira Gerber Anticipated date of discharge: 05/03/18 Physical Examination Vital Signs, Last 4 Hours Temp Pulse Resp BP Pulse Ox 05/03/18 08:02 16 93 05/03/18 06:42 98.3 F 73 18 108/74 95 General: Conversant, No Apparent Distress HEENT: Atraumatic, Normocephaly, Trachea midline Neck: No JVD, Normal carotid pulses Cardiac: Reg Rate and Rhythm, Normal S1 and S2, No Murmur Lungs: Normal Breath Sounds, No Wheeze, Rales, Rhonchi Neuro: Alert and responsive, No focal deficits noted Vascular: Normal capillary refill Abdomen: Soft, Non-tender Skin: No rashes noted on visualized skin Extremities: No Clubbing, No Cyanosis, No Edema, Normal Pulses - Patient Status Disposition: Home, Self-Care Condition: Good Overall status at discharge: patient is progressing back to baseline - Discharge Instructions Follow Up With: Angely Rahman, [employer] [Advanced Practice Nurse] - 05/09/18 3:15 pm (PLEASE TAKE WITH YOU TO YOUR APPOINTMENT THE NEW PATIENT PACKET THAT IS BEING MAILED TO YOU FILLED OUT. IF YOU DO NOT RECEIVE THE PACKET BEFORE YOUR APPOINTMENT PLEASE SHOW UP 30 MINUTES EARLY TO FILL OUT PAPER WORK. PLEASE TAKE WITH YOU YOUR PICTRUE ID, INS. CARDS,A LIST ALL MEDICATIONS INCLUDING OVER THE COUNTER. IF YOU NEED TO CANCEL THIS APPOINTMENT PLEASE CALL [phone] 24 HOURS BEFORE YOUR APPOINTMENT. THIS OFFICE DOES NOT GIVE OUT CONTROLLED MEDICATION) Saira Gerber MD [Partnered Physician] - 05/19/18 1:40 pm Jackie Brooks DO [Primary Care Provider] - (OFFICE WILL CALL PATIENT AT HOME WITH FOLLOW UP) Forms: ED Satisfaction Letter - Diet and Activity Activity: sternal precautions, no driving for four weeks, no lifting greater than 10 pounds for eight weeks Diet: low fat, low cholesterol [facility] Aspirin Cont/Prescribed at DC: Yes Beta Jesús Cont/Prescribed at DC: Yes Statin Cont/Prescribed at DC: Yes IONA/ARB Cont/Prescribed at DC: Not indicated (LVEF greater than 50%) - VTE Documentation of Mechanical Device: Graduated compression elastic hosiery
== END 2018-05-03 10:53 | disposition home or self-care (01) | DRG 234 ==
LOC: 3BNU 21:06 → EMEROO 21:06 → 3BNU 23:20 → ICNU 04-29 08:04 → 2NNU 04-30 19:56
PROVIDERS: ADMIT Family Medicine; ATTEND Family Medicine

== ENCOUNTER 2021-09-14 12:07 | Observation (INO) ==
[2021-09-14 14:02] LABS: Basophils % 0.4 %; Eosinophils # 0.1 K/mcL (0.0-0.6); Eosinophils % 1.5 %; Hematocrit 41.6 % (37.5-50.1); Hemoglobin 14.2 g/dL (12.9-16.9); Immature Granulocytes % 0.6 % (0-4); Lymphocytes % 18.8 %; Mean Corpuscular HGB Conc 34.1 g/dL (31.6-35.5); Mean Corpuscular Hemoglobin 29.6 pg (28.0-33.3); Mean Corpuscular Volume 86.7 fL (83.0-100.0); Mean Platelet Volume 9.8 fL (9.4-12.4); Monocytes # 0.3 K/mcL (0.0-1.3); Monocytes % 5.5 %; Neutrophils # 3.9 K/mcL (1.6-8.9); Platelet Count 184 K/mcL (140-400); Red Cell Distribution Width 13.6 % (11.5-14.5); Segmented Neutrophils % 73.2 %; White Blood Count 5.3 K/mcL (4.3-11.1)
[2021-09-14 14:23] LABS: BUN/Creatinine Ratio 16 (6-26); Blood Urea Nitrogen 16 mg/dL (6-20); Calcium 9.1 mg/dL (8.6-10.3); Carbon Dioxide 24 mEq/L (23-29); Chloride 104 mEq/L (98-107); Glucose 124 mg/dL (70-105); Osmolality,Calculated 287 (280-300); Potassium 3.7 mEq/L (3.5-5.1); Sodium 137 mEq/L (136-145); Troponin I < 0.03 ng/mL (< 0.04); eGFR For African Americans > 60 (> 60); eGFR For Non-African Americans > 60 (> 60)
[2021-09-14] MEDS ORDERED: Aspirin 325 MG TABLET PO ONE (15:12)
[2021-09-14] MEDS ORDERED: Ondansetron 4 MG/2 ML VIAL IVP PRN (15:14)
[2021-09-14] MEDS ORDERED: Naloxone 0.4 MG/ML INJ IVP PRN (15:14)
[2021-09-14] MEDS: Isosorbide MONOnitrate (24 HR) 30 MG TAB.ER.24H PO SCH (17:21)
[2021-09-15 01:38] LABS: Basophils % 0.3 %; Eosinophils # 0.2 K/mcL (0.0-0.6); Eosinophils % 3.2 %; Hematocrit 40.4 % (37.5-50.1); Hemoglobin 13.7 g/dL (12.9-16.9); Immature Granulocytes % 0.3 % (0-4); Lymphocytes # 1.3 K/mcL (0.6-4.6); Lymphocytes % 19.6 %; Mean Corpuscular HGB Conc 33.9 g/dL (31.6-35.5); Mean Corpuscular Hemoglobin 29.8 pg (28.0-33.3); Monocytes # 0.4 K/mcL (0.0-1.3); Monocytes % 5.9 %; Neutrophils # 4.7 K/mcL (1.6-8.9); Platelet Count 178 K/mcL (140-400); Red Blood Count 4.59 M/mcL (4.19-5.50); Red Cell Distribution Width 13.7 % (11.5-14.5); Segmented Neutrophils % 70.7 %; White Blood Count 6.6 K/mcL (4.3-11.1)
[2021-09-15 01:50] LABS: BUN/Creatinine Ratio 16 (6-26); Blood Urea Nitrogen 17 mg/dL (6-20); Calcium 8.6 mg/dL (8.6-10.3); Carbon Dioxide 26 mEq/L (23-29); Chloride 104 mEq/L (98-107); Glucose 119 mg/dL (70-105); Magnesium 1.9 mg/dL (1.6-2.6); Osmolality,Calculated 287 (280-300); Potassium 3.7 mEq/L (3.5-5.1); Sodium 137 mEq/L (136-145); eGFR For African Americans > 60 (> 60); eGFR For Non-African Americans > 60 (> 60)
[2021-09-15] MEDS: Furosemide 20 MG TABLET PO SCH (08:29)
[2021-09-15] MEDS: Aspirin 81 MG TAB.CHEW PO SCH (08:29)
[2021-09-15] MEDS: Isosorbide MONOnitrate (24 HR) 30 MG TAB.ER.24H PO SCH (08:29)
[2021-09-15] MEDS ORDERED: Metoprolol XL (24 HR) Succ 25 MG TAB.ER.24H PO SCH (09:00)
[2021-09-15] MEDS ORDERED: *HR* Labetalol 20 MG/4 ML SYRINGE IVP ONE ×2 (20:05→21:52)
[2021-09-16 01:50] LABS: Basophils % 0.2 %; Eosinophils # 0.2 K/mcL (0.0-0.6); Eosinophils % 4.2 %; Hematocrit 42.8 % (37.5-50.1); Hemoglobin 15.1 g/dL (12.9-16.9); Immature Granulocytes % 0.3 % (0-4); Lymphocytes # 1.6 K/mcL (0.6-4.6); Mean Corpuscular HGB Conc 35.3 g/dL (31.6-35.5); Mean Corpuscular Hemoglobin 31.1 pg (28.0-33.3); Mean Corpuscular Volume 88.2 fL (83.0-100.0); Mean Platelet Volume 9.8 fL (9.4-12.4); Monocytes # 0.4 K/mcL (0.0-1.3); Monocytes % 6.7 %; Neutrophils # 3.6 K/mcL (1.6-8.9); Platelet Count 197 K/mcL (140-400); Red Blood Count 4.85 M/mcL (4.19-5.50); Red Cell Distribution Width 13.8 % (11.5-14.5); Segmented Neutrophils % 61.6 %; White Blood Count 5.8 K/mcL (4.3-11.1)
[2021-09-16 01:59] LABS: BUN/Creatinine Ratio 15 (6-26); Blood Urea Nitrogen 17 mg/dL (6-20); Carbon Dioxide 27 mEq/L (23-29); Chloride 101 mEq/L (98-107); Glucose 99 mg/dL (70-105); Magnesium 2.1 mg/dL (1.6-2.6); Osmolality,Calculated 284 (280-300); Potassium 3.4 mEq/L (3.5-5.1); Sodium 136 mEq/L (136-145); eGFR For African Americans > 60 (> 60); eGFR For Non-African Americans > 60 (> 60)
[2021-09-16 04:50] VITALS: O2SAT 96
[2021-09-16] MEDS ORDERED: *HR* Enoxaparin 40 MG/0.4 ML SYRINGE SQ SCH (07:00)
[2021-09-16 07:24] VITALS: BP 156/93; PULSE 67; TEMP 98.1
[2021-09-16] MEDS ORDERED: Metoprolol XL (24 HR) Succ 25 MG TAB.ER.24H PO SCH (09:00)
[2021-09-16] MEDS ORDERED: Isosorbide MONOnitrate (24 HR) 30 MG TAB.ER.24H PO SCH (09:00)
[2021-09-16] MEDS: Aspirin 81 MG TAB.CHEW PO SCH (09:53)
[2021-09-16] MEDS: Furosemide 20 MG TABLET PO SCH (09:53)
== END 2021-09-16 10:31 | disposition home or self-care (01) ==
LOC: EMEROOARM 12:07 → 3BNU 12:07 → SUATTDRO 17:44 → 3BNU 18:20
PROVIDERS: ADMIT Family Medicine; ATTEND Pharmacist